=== PATIENT | female | born 1950 | race Caucasian/White ===

== ENCOUNTER 2018-04-28 13:06 | Inpatient (IN) | payer MEDICARE, OTHER ==
[~2018-04-28] VITALS: Ht 160 cm; Wt 76.2 kg
--- NOTE | ~2018-04-28 | H ---
[address] [address] HISTORY AND PHYSICAL Name: DORITA TUBBS Room: [address] IN M.R.#: [id number] Admission: 04/28/18 Attend Phys: Sapna Gibbs DO Discharge: Date of : 50 Report #: [id number] THIS REPORT FOR: //name// CC: Musa Gibbs DATE OF SERVICE: 04/28/2018 HISTORY OF PRESENT ILLNESS: This is a 68-year-old female admitted to inpatient rehabilitation to facilitate safe discharge home, status post fall from standing height down to stairs, sustaining a left bimalleolar ankle fracture as well as impact to bilateral knees, which she does have osteoarthritis onto the right foot, which was ruled out to have no fracture initially, but is to be followed by Orthopedic Surgery in 1 week. She did have an inability to weightbear on the left lower extremity following the fall and when x-ray did show a bimalleolar fracture of the left ankle, she did follow with Orthopedic Surgery who wanted to follow up with her in 1 week's time to see if she would be a surgical candidate or nonoperative conservative treatment. No significant changes since the preadmission screening. Previous level of function was independent to modified independent with activities of daily living, requiring 3 liters of oxygen due to pulmonary issues around the clock. Current level of function is mod assist of 1-2 depending on therapy, activity and time of day. Estimated length of stay is 7-10 days, with discharge disposition to the home setting where she does have supportive family in the area. She does not have an accessible house for wheelchair, but she does have an elevator. She is nonweightbearing on the left lower extremity until further evaluated by Orthopedic Surgery for followup. She does have a hard splint in place. PAST MEDICAL HISTORY: 1. 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 2. COPD. 3. Hypertension. 4. Status post fall. 5. Irregular heartbeat. 6. Anemia. 7. Recurrent UTIs. PAST SURGICAL HISTORY: Appendectomy, endarterectomy of the right carotid. Hysterectomy, parathyroid gland surgery due to an adenoma. ALLERGIES: PENICILLIN, SHELLFISH, STRAWBERRIES, VANCOMYCIN AND ANALOGS. SOCIAL HISTORY: No tobacco, alcohol or illicit drug use. MEDICATIONS: Reviewed and reconciled by myself [place] [address] HISTORY AND PHYSICAL Name: DORITA TUBBS Room: [address] IN [facility]#: [id number] Admission: 04/28/18 Attend Phys: Sapna Gibbs DO Discharge: Date of : 50 Report #: [id number] FAMILY HISTORY: Cardiac disease and diabetes. REVIEW OF SYSTEMS: A 14-point review of systems is done and is negative except as mentioned in HPI, specifically no fever, chest pain, shortness of breath, abdominal pain or distention, change in bowel or change in bladder. PHYSICAL EXAMINATION: GENERAL: Alert, oriented, no apparent distress. VITAL SIGNS: Reviewed and are stable. HEENT: Head atraumatic, normocephalic. Pupils equal, round, reactive. ABDOMEN: Soft, nontender, nondistended. NEUROLOGIC: Cranial nerves 2-12 are grossly intact with no focal neuro deficits, 5/5 strength in the bilateral upper and lower extremities. SKIN: Warm and dry. No rashes or lesions noted. In the left lower extremity, there is a hard splint in place. She can wiggle all of her toes. ASSESSMENT: 1. Left bimalleolar ankle fracture, status post fall from standing height with nonweightbearing and currently conservative treatment until followup with Orthopedic Surgery in 7 days. 2. Multiple medical comorbidities including need for anticoagulation, hypertension, O2 dependency with chronic obstructive pulmonary disease and eosinophilic granuloma, chronic anemia requiring transfusion and iron infusion. 3. Debility with alterations in activities of daily living. PLAN: 1. Admission to inpatient rehabilitation to facilitate safe discharge home. 2. PT, OT, case management, nursing and HIMS to make evaluations and recommendations. 3. Plan of care is pending, and we will team her weekly on Wednesdays. 4. Pain control. By: [id number] Gibbs DO /nt
--- NOTE | ~2018-04-28 | PLAN ---
[address] [address] REHAB UNIT PLAN OF CARE Name: DORITA TUBBS Room: [address] IN .R.#: [id number] Admission: 04/28/18 Attend Phys: Sapna Gibbs DO Discharge: Date of : 50 Report #: [id number] THIS REPORT FOR: //name// CC: Musa Gibbs This is a 68-year-old female admitted to inpatient rehabilitation to facilitate safe discharge home, status post fall from standing height down 2 stairs sustaining a left bimalleolar ankle fracture as well as contusions to the bilateral knees, which she has osteoarthritis and the right foot. She has been managed conservatively with a hard splint on left lower extremity with nonweightbearing status until followup with Orthopedic Surgery in 1 week's time. She does have multiple medical comorbidities including acute on chronic pulmonary issues requiring oxygen dependency at 3 liters around the clock, hypertension, debility with changes in balance, COPD, anemia and recurrent UTIs. Previous level of function was modified independent to independent with activities of daily living. Current level of function is moderate assistance to maximum assistance depending on therapy, activity and time of day. Estimated length of stay is 7-10 days with discharge disposition to the home setting. MEDICAL PROGNOSIS: Good. REHABILITATION PROGNOSIS: Good. Physical therapy will see the patient 60-90 minutes per day, 5 days per week, working on upper and lower body strength, balance, coordination, navigation. Occupational therapy will work with the patient 60-90 minutes per day, 5 days per week, working on upper and lower body strength, balance, coordination, navigation, bathing, dressing, and toileting. This is an overall plan of care, may change from time to time. We will team weekly and make changes to plan of care as needed. By: [id number] Gibbs DO /mara
[~2018-04-28 13:06] MED LIST: ALLOPURINOL 10100 M1 PO; AMITRIPTYLINE H25 M2 PO; ASMANEX0.135 GM PO; CLONAZEPAM 0.50.5 M1 PO; COLACE 100 MG100 MG PO; COLCRYS 0.6 MG0.6 MG PO; COZAAR 50 MG TA50 M1 PO; DEPAKOTE250 MG PO; DILTIAZEM HCL60 MG PO; FUROSEMIDE 20 M20 M1 PO; MELATONIN3 MG PO; NORTRIPTYLINE H25 M3 PO; PHENERGAN 25 MG25 M1 PO; POTASSIUM20 PO; PREDNISONE 10 M10 M1 PO; SYNTHROID100 MC1 PO; TORADOL 10 MG T10 MG PO; TRAMADOL 50 MG50 MG PO; VITAMIN D1000 UNI1 PO; XOPENEX HFA15 GM PO; XOPENEX1.25 MG/3 INH
[2018-04-28] MEDS ORDERED: GLIMEPIRIDE1 MG PO (13:55)
[2018-04-28] MEDS ORDERED: JANUVIA100 MG PO (13:56)
[2018-04-28] MEDS ORDERED: NITROGLYCERIN SPRAY SUBLING (14:00)
[2018-04-28] MEDS ORDERED: BACTRIM DS TAB1 EACH PO (14:03)
[2018-04-28] MEDS ORDERED: PEPCID20 MG PO (14:05)
[2018-04-28] MEDS ORDERED: OMEPRAZOLE 20 M20 M1 PO (14:09)
[2018-04-28 16:00] VITALS: BP 105/56
--- NOTE | 2018-04-28 17:54 | NUR ---
ASSUMMED CARE OF PT ON ADMISSION TO UNIT 1600, PT ALERT AND ORIENTED, PT TRANSFERS WITH SBA/MIN ASSIST GB WALKER, PT DENIES NEED FOR PAIN MEDICATION, SPLINT TO LEFT ANKLE, ELEVATED WHEN IN CHAIR, PT ON O2 AT 3L PER HOME ORDER, O2 SAT 95% ON 3L, PT IS NWB TO LEFT LEG, PT IS CONTINENT OF BOWEL AND BLADDER, DOES NOT WEAR PAD, ORIENTED TO ROOM, HOURLY ROUNDING COMPLETED, ASSESSMENT COMPLETE, WILL COTNINUE TO MONITOR.
[2018-04-28 20:28] VITALS: BP 104/57
[2018-04-29 04:19] LABS: HEMATOCRIT 41.1 % (37.0-47.0); HEMOGLOBIN 13.4 gm/dL (12.0-15.0); MCH 29.4 pg (26.0-34.0); MCHC 32.6 g/dL (28.0-37.0); MCV 90.2 fL (80.0-100.0); MPV 8.1 fl. (7.2-11.1); RBC 4.56 mil/uL (4.20-5.00); RDW-CV 15.5 % (10.5-14.5); WBC 7.4 thou/uL (4.0-11.0)
[2018-04-29 04:43] LABS: CALCIUM 9.5 mg/dL (8.5-10.1); CREATININE 0.8 mg/dL (0.6-1.3); POTASSIUM 4.8 mmol/L (3.5-5.1)
--- NOTE | 2018-04-29 05:27 | NUR ---
ASSUMED PT CARE AT 1930. PT ALERT AND ORIENTED X4, POLITE AND COOPERATIVE WITH CARES. DENIES PAIN HAVING HAD TYLENOL JUST PRIOR TO SHIFT CHANGE. PT TRANSFERS WITH SBA, GAIT BELT AND WALKER. PT IS NWB ON LEFT LEG. SPLINT TO LEFT ANKLE, DRESSING C/D/I. PT ON 3L 02 OVERNIGHT PER HOME REGIMEN. PT CONTINENT OF BOWEL AND BLADDER, UP TO BSC TO VOID. USES CALL LIGHT APPROPRIATELY. CALL LIGHT AND FREQUENTLY USED ITEMS WITHIN REACH. HOURLY ROUNDING IN PROGRESS, WILL CONTINUE TO MONITOR.
--- NOTE | 2018-04-29 12:20 | NUR ---
Nutrition: Consult for wt loss without trying since November. Pt stated she has lost ~20# since her in Nov. 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 She has resorted to frozen tv dinners and salads. She has support from dtr who suggested using alarm on phone to remind her to eat. Pt also has DM and feels light-headed when BG is in 70/60s. We discussed hypoglycemic TX. She also has CHF - we discussed importance of low Na diet, how to manage Na with frozen dinners (<600mg per meal). All questions answered. RD expects fair to good compliance. Current wt: 158#. Mild risk at this time.
--- NOTE | 2018-04-29 16:04 | NUR ---
SW met with pt to complete initial assessment, introduce self, and SW role on inpt rehab unit. Pt alert, oriented. Pt lives at home alone. Pt has 2 dtrs, Rosanne and Sapna, Sapna is pt DPOA and lives closer to pt. Rosanne lives in [place], [place]. Pt has oxygen at home; pt says it's provided through [employer]. Pt does not have history of HH and has been independent with mobility and ADLs prior to pt fall and hospitalization. Pt discussed that she has been a only 4 months now and says she has a difficult time being alone/grieving loss but pt goal is to be able to make progress in therapies and be able to return home safely. Pt said she has learned so much in therapies already. SW discussed team conference on Wednesdays, provided consent form, and will continue to follow to assist with safe dc planning.
--- NOTE | 2018-04-29 16:58 | NUR ---
ASSUMED CARE OF PATIENT AT APPROX 0720. ALERT AND ORIENTED X4. ASSESSMENT COMPLETED AND CHARTED. VSS ON 3 LITERS 02. NO COMPLAINTS OF PAIN THROUGHOUT SHIFT. PATIENT TO THE DINING ROOM FOR MEALS TODAY. UP TO THE BATHROOM USING WHEELCHAIR AND MAINTAINING NON WEIGHT BEARING STATUS ON LLE. WOTKING WITH THERAPIES TODAY AND PROGRESSING TOWARD GOALS. HOURLY ROUNDS MAINTAINTED. FALL PRECAUTIONS IN PLACE. CALL LIGHT WITHIN REACH. NURSING WILL CONTINUE TO MONITOR.
[2018-04-29 20:34] VITALS: BP 144/61
--- NOTE | 2018-04-30 05:24 | NUR ---
ASSUMED PT CARE AT 1930. PT ALERT AND ORIENTED X4, POLITE AND COOPERATIVE WITH CARES. PT SITTING UP WATCHING TELEVISION AT SHIFT CHANGE. UP WITH MIN ASSIST, GAIT BELT AND WHEELCHAIR TO BATHROOM TO VOID WHILE MAINTAINING NON WEIGHT BEARING STATUS ON LLE. PT REQUESTED TRAMADOL AND TYLENOL AT HS AND SLEPT WELL OVERNIGHT. USES CALL LIGHT APPROPRIATELY. CALL LIGHT AND FREQUENTLY USED ITEMS WITHIN REACH. HOURLY ROUNDING IN PROGRESS, WILL CONTINUE TO MONITOR.
[2018-04-30 07:00] VITALS: BP 129/71
--- NOTE | 2018-04-30 16:58 | NUR ---
PT HAS PARTICIPATED WITH THERAPIES AND CALLS FOR ASSIST NEEDS. PRN FOR PAIN GIVEN X2 WITH GOOD EFFECT. PT TRANSFERRS WITH WALKER, GAITBEL NWB TO LT LEG AND HOPS. PT IS CONTINENT OF B+B. CAST TO LT LOWER LEG DRY AND INTACT.PT REMAINS ALERT AND ORIENTATED. HOURLY ROUNDING CONTINUES.
--- NOTE | 2018-05-01 05:21 | NUR ---
ASSUMED PT CARE AT 1930. PT ALERT AND ORIENTED X4, POLITE AND COOPERATIVE WITH CARES. HX OF LEFT ANKLE FRACTURE. UP WITH SBA, GAIT BELT AND WALKER. PT HOPS ON RIGHT FOOT, NWB TO LEFT LEG. CAST TO LOWER LEFT LEG DRY AND INTACT. PT CONTINENT OF BOWEL AND BLADDER. UP TO BSC TWICE OVERNIGHT TO VOID. PRN PAIN MEDICATION TWICE THIS SHIFT. USES CALL LIGHT APPROPRIATELY. CALL LIGHT AND FREQUENTLY USED ITEMS WITHIN REACH. HOURLY ROUNDING IN PROGRESS, WILL CONTINUE TO MONITOR.
[2018-05-01 08:14] VITALS: BP 109/59
--- NOTE | 2018-05-01 17:47 | NUR ---
pt pain managed well with ordered pain meds. pt wants to keep a regular schedule with pain meds to control pain in lle and c/o r foot throbbing 'like it has a headache'. pt transfers with sba using walker and gait belt. pt able to make needs known, call light in reach
[2018-05-01 19:09] VITALS: BP 137/59
[2018-05-01 19:15] VITALS: BP 137/59
--- NOTE | 2018-05-01 20:30 | NUR ---
SLEEPING IN RECLINER. AWAKENED FOR HS REASSESSMENT AND MEDICATIONS PASS. TOOK MEDICATIONS WHOLE WITH WATER. SNACK PROVIDED.
--- NOTE | 2018-05-02 05:40 | NUR ---
UP X ONE DURING THE NIGHT TO THE BEDSIDE COMMODE TO VOID. HOURLY ROUNDING IN PROGRESS.
[2018-05-02 08:24] VITALS: BP 140/76
[2018-05-02 08:30] VITALS: BP 140/76
--- NOTE | 2018-05-02 16:56 | NUR ---
PATIENT REMAINED ALERT AND ORIENTED X'S4. VITAL SIGNS AND SPO2 STABLE. PAIN WELL CONTROLLED WITH TYLENOL AND TRAMODOL. VOIDED WITHOUT ISSUE, STANDS AND PIVOTS AT BEDSIDE COMMODE. TOLERATED DIET, NO NAUSEA AND VOMITING. ANKLE ELEVATED IN CHAIR CURRENTLY. COMPLETED HOURLY ROUNDING. CALL LIGHT WITHIN REACH. WILL CONTINUE TO MONITOR.
[2018-05-02 19:35] VITALS: BP 154/64
--- NOTE | 2018-05-02 19:35 | NUR ---
SITTING UP IN BED AND WATCHING TV. IN GOOD SPIRITS/SMILING. STATES LEFT ANKLE PAIN AT A "6". WILL GIVE PAIN MEDS. CALL LIGHT WITHIN REACH.
--- NOTE | 2018-05-03 05:40 | NUR ---
PAIN MEDICATION GIVEN AGAIN AT 0407. SOME RELIEF AFTER SITTING UP ON SIDE OF BED FOR AWHILE. RESTED ON/OFF. HOURLY ROUNDING IN PROGRESS.
[2018-05-03 08:00] VITALS: BP 115/47
--- NOTE | 2018-05-03 13:40 | NUR ---
SW received message/order to arrange transportation to pt ortho appt with [facility]...Nurse provided info of appt Thursday05/07/[address] [place] [address] [place] [address] at 1330. SW called [facility] [employer] and provided a request for transportation, SW will await confirmation that [facility] will be able to provide ride, and if not, SW will call [facility] nearer to appt date to arrange ride. SW to continue to follow to assist with safe dc planning.
--- NOTE | 2018-05-03 16:42 | NUR ---
PT HAS WORKED WITH THERAPIES AT NWB STATUS TO LT ANKLE. PT TRANSFERRS WITH WALKER,GAITBELT AND HOPPING . PT HAS C/O PAIN IN RT. ANKLE WITH CT DONE TODAY AND NO RESULTS BACK YET. PT CONTINENT OF B+B AND CALLS FOR ASSIST TO COMMODE. PT REMAINS ALERT AND ORIENTATED. CAST INTACT TO LLE. PRN FOR PAIN GIVEN WITH GOOD EFFECT.
[2018-05-03 20:00] VITALS: BP 120/47
--- NOTE | 2018-05-04 05:32 | NUR ---
ASSUMED CARE AT 1920. ALERT AND ORIENTED. PLEASANT. LEFT ANKLE FX. NWB LLE. LLE CAST IN PLACE. O2 3L NC. TRAMADOL AND APAP GIVEN FOR LEFT ANKLE PAIN. TOOK PILLS WHOLE WITHOUT ISSUES. MOD ASSIST WITH GAIT BELT. STAND AND PIVOT. UP TO BSC. DOES OWN CARES. NEEDS ASSIST WITH LEG INTO BED. SAT UP ONTO SIDE OF BED X 1 SETTING OFF BED ALARM. WAS UNCOMFORTABLE IN BED AND SO PAIN MEDS GIVEN. SLEPT OFF AND ON. CALL LIGHT IN REACH AND BED ALARM ON.
[2018-05-04 08:00] VITALS: BP 132/57
--- NOTE | 2018-05-04 16:26 | NUR ---
PT HAS PARTICIPATED WITH THERAPIES AND WAS GIVEN PL TYLENOL THIS AFTERNOON WITH GOOD EFFECT. ROSELYN WRAPPED DRY AND INTACT TO LT LE. PT TRANSFERRS WITH MUCH QUEING FOR PROPER TRANSFERRE WITH WALKER,GAITBELT NWB TO LT LEG AND MIN ASSIST PT IS ALERT AND ORIENTATED BUT SLEEPY AT TIMES. PT TOLERATES MEALS AND EATS IN DINNINGROOM. PT IS CONTINENT OF B+B AND CALLS FOR ASSIST TO BSC. PT PROGRESSES TOWARDS GOALS AND HOURLY ROUNDING CONTINUES.
[2018-05-04 20:00] VITALS: BP 132/64
--- NOTE | 2018-05-05 05:15 | NUR ---
ASSUMED CARES AT 1920. ALERT AND ORIENTED. PLEASANT. LEFT ANKLE FX. NWB LLE. ON O2 3L NC. PAIN MEDS GIVEN NEEDED. MOD ASSIST WITH GAIT BELT. STAND AND PIVOT. UP TO BSC. DOES OWN CARES. SLEPT WELL. CALL LIGHT IN REACH AND BED ALARM ON.
[2018-05-05 08:00] VITALS: BP 139/63
--- NOTE | 2018-05-05 16:17 | NUR ---
Pt in the middle of OT session at time of rounds after team, Dr Gibbs later reviewed team conference summary with pt and discussed plan to reteam. Pt to have ortho appt on Thursday; SW to arrange [facility], SW received call back from [facility] who thought that they would be able to provide ride but then had to cancel. If SNF needed, pt/family preference is for [facility], SW to call as needed. SW to continue to follow to assist with safe dc planning.
--- NOTE | 2018-05-05 18:47 | NUR ---
PT IS ALERT AND ORIENTED. PT WAS TEARY EARLIER IN AM. OXYGEN @ 3 L/NC. ADMINISTERED TYLENOL FOR PAIN MEDICATION . PARTICIPATED IN THERAPIES DURING DAY. UP WITH ASSIST X 1 WITH GAIT BELT AND WALKER. USES BSC. NON-WEIGHTBEARING TO LLE. CAST IN PLACE. PT TO MRI @ 1630. ACCUCHECK @ 64 IN EVENING. RECHECK AND NOTED TO BE @ 110. HOURLY ROUNDS MAINTAINED. CALL LIGHT WITHIN REACH.
[2018-05-05 19:45] VITALS: BP 106/38
[2018-05-05 20:00] VITALS: BP 130/71
[2018-05-06 04:33] LABS: ABSOLUTE EOSINOPHILS 0.3 thou/uL (0.0-0.7); ABSOLUTE LYMPHOCYTES 2.5 thou/uL (0.8-5.3); ABSOLUTE MONOCYTES 0.7 thou/uL (0.0-1.2); ABSOLUTE NEUTROPHILS 2.3 thou/uL (1.6-8.1); BASOPHILS 0.4 %; EOSINOPHILS 5.5 %; HEMATOCRIT 39.2 % (37.0-47.0); HEMOGLOBIN 12.9 gm/dL (12.0-15.0); LYMPHOCYTES 42.9 %; MCH 30.2 pg (26.0-34.0); MCHC 32.9 g/dL (28.0-37.0); MCV 91.7 fL (80.0-100.0); MONOCYTES 12.5 %; MPV 7.5 fl. (7.2-11.1); NUCLEATED RBCS 0 /100WBC; PLATELET COUNT* 119 thou/uL (150-400); POLYS 38.7 %; RBC 4.28 mil/uL (4.20-5.00); RDW-CV 15.2 % (10.5-14.5); WBC 5.9 thou/uL (4.0-11.0)
[2018-05-06 04:49] LABS: ALBUMIN 2.6 g/dL (3.4-5.0); CALCIUM 9.6 mg/dL (8.5-10.1); CREATININE 0.7 mg/dL (0.6-1.3); POTASSIUM 4.4 mmol/L (3.5-5.1); TOTAL BILIRUBIN 0.3 mg/dL (<0.1-1.0); TOTAL PROTEIN 6.6 g/dL (6.4-8.2)
[2018-05-06 05:16] LABS: % SATURATION 28 % (20-39); IRON 83 ug/dL (50-175)
--- NOTE | 2018-05-06 05:47 | NUR ---
ASSUMED CARES AT 1920. PT SLEEPING, DROWSY BUT EASY TO AWAKEN. NWB LLE. O2 3L NC. TYLENOL GIVEN FOR LEFT ANKLE PAIN. MOD ASSIST WITH GAIT BELT. STAND AND PIVOT. UP TO BSC. NEEDS CUEING WITH TRANSFERS. NO ISSUES OVERNIGHT. SEEN SLEEPING DURING ROUNDS. CALL LIGHT IN REACH AND BED ALARM ON.
[2018-05-06 08:00] VITALS: BP 121/50
--- NOTE | 2018-05-06 15:41 | NUR ---
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 SW to continue to follow to assist with safe dc planning.
--- NOTE | 2018-05-06 16:14 | NUR ---
ASSUMMED CARE OF PT AT 0730, PT ALERT, TEARY EYED AT TIMES THRUOUT SHIFT, TRANSFERS WITH MIN/MOD ASSIST GB WALKER AND CUEING, NWB LEFT LEG, PT COMPLAIN OF PAIN IN LEFT LEG, MEDICATED PER ORDER, CONSULT FOR ORTHO TO SEE FOR RESULT OF RIGHT FX, POST OP BOOT ORDERED, PT MAY BE WBAT TO RIGHT LEG, PT VOIDS PER COMMODE, TAKING FOOD AND FLUIDS BUT DOES NEED ENCOURAGEMENT TO EAT, PARTICIPATED IN ALL THERAPIES, HOURLY ROUNDING COMPLETED, ASSESSMENT COMPLETE, WILL CONTINUE TO MONITOR.
--- NOTE | 2018-05-06 17:29 | NUR ---
I have reviewed the documentation by MARÍA FRIED TODAY and I concur with it. TAMI MALIN
[2018-05-06 20:34] VITALS: BP 136/58
--- NOTE | 2018-05-07 06:12 | NUR ---
ASSUMED PT CARE AT 1930. PT ALERT AND ORIENTED X4, POLITE AND COOPERATIVE WITH CARES. PT SITTING UP IN RECLINER WITH FEET ELEVATED. PT UP WITH MID/MOD ASSIST, GAIT BELT, WALKER AND CUEING. USED BSC OVERNIGHT TO VOID. NWB LEFT LEG, WBAT TO RIGHT LEG.
[2018-05-07 08:33] VITALS: BP 143/57
--- NOTE | 2018-05-07 13:20 | NUR ---
I have reviewed the documentation by MARÍA FRIED from TODAY to 05/07/18 and I concur with it. TAMI MALIN
--- NOTE | 2018-05-07 18:39 | NUR ---
ASSUMMED CARE OF PT AT 0730, PT ALERT AND ORIENTED, TRANSFERS WITH MIN/MOD ASSIST, GB WALKER AND O2, PT COMPLAINS OF PAIN IN BILATERAL LE, MEDICATED PER ORDER, PT DENIES NAUSEA, STATES APETITE IS POOR FOR LAST SEVERAL MONTHS, DISCUSSED THAT PT HAS NOT HAD BM FOR SEVERAL DAYS, PT REFUSED MEDS THIS AM STATING LAST TIME SHE TOOK MEDS HAD LOOSE STOOLS, PT STATES PASSING FLATUS, EDUCATED PT ON IMPORTANCE OF HAVING BOWEL MOVEMENT, PT AGREEABLE TO TAKE MILK OF MAGNESIA AT BEDTIME TONIGHT, DISCUSSED SUPP IF NO RESULTS TOMORROW, PT HAD APPT AT ORTHOPEDIC OFFICE TODAY, PT NOW HAS CAM BOOT ON LEFT AND ORTHO SHOE ON RIGHT, PT STATED WHEN CAST WAS CUT OFF, HER LEG WAS CUT, STERI STRIPS/GAUZE APPLIED AT ORTHO OFFICE,CUT NOTED ON MID ROJAS AREA, O2 ON AT 3 L ALL SHIFT, PARTICIPATED IN ALL THERAPIES, ASSESSMENT COMPLETE, HOURLY ROUNDING COMPLETE, WILL MICHELLUE TO MONITOR.
[2018-05-07 20:27] VITALS: BP 141/61
--- NOTE | 2018-05-08 05:43 | NUR ---
ASSUMED PT CARE AT 1930. PT ALERT AND ORIENTED X4, POLITE AND COOPERATIVE WITH CARES. UP WITH MINIMUM TO MODERATE ASSISTANCE, GAIT BELT AND WALKER. PT NEEDS STEADYING ASSIST WHEN STANDING. PRN PAIN MEDICATION TWICE THIS SHIFT FOR LEFT FOOT PAIN. PT WEARS CAM BOOT TO LEFT LE AND ORTHO SHOE ON RIGHT FOOT. STERI-STIPS APPLIED TO LEFT ROJAS AT ORTHO OFFICE INTACT. 02 AT 3L AT ALL TIMES. SMALL STOOL AT SHIFT CHANGE. PT TOOK COLACE AND MOM WITH EVENING MEDS. CALL LIGHT AND FREQUENTLY USED ITEMS WITHIN REACH. USES CALL LIGHT APPROPRIATELY. BED ALARM ON FOR SAFETY. HOURLY ROUNDING IN PROGRESS, WILL CONTINUE TO MONITOR.
[2018-05-08 07:00] VITALS: BP 117/56
[2018-05-08 07:57] VITALS: BP 117/56
--- NOTE | 2018-05-08 18:15 | NUR ---
AM ASSESSMENT AND VITAL SIGNS COMPLETED DOCUMENTED. PT WORE A CAM BOOT ON THE LEFT LOWER LEG AND AN ORTHOPEDIC SHOE ON HER RIGHT FOOT. PT TRANSFERS WITH A WALKER AND TRIES TO AVOID PUTTING WEIGHT ON HER LEFT FOOT. PRN TRAMADOL AND ACETAMINOPHEN GIVEN FOR PAIN WITH PARTIAL RELIEF. FALL PRECAUTIONS AND HOURLY ROUNDING CONTINUE.
[2018-05-08 20:20] VITALS: BP 118/64
--- NOTE | 2018-05-09 05:31 | NUR ---
ASSUMED PT CARE AT 1930. PT ALERT AND ORIENTED X4, POLITE AND COOPERATIVE WITH CARES. HX OF LEFT ANKLE FRACTURE. UP WITH MIN TO MODERATE ASSIST, GAIT BELT AND WALKER. PT NEEDS STEADING ASSIST WHEN STANDING. PRN MEDICATION ONCE THIS SHIFT FOR LEFT FOOT PAIN. PT WEARS CAM BOOT TO LEFT LE AND ORTHO SHOE ON RIGHT FOOT. STERI-STRIPS TO LEFT ROJAS INTACT. 02 AT 3L AT ALL TIMES. NO STOOL THIS SHIFT. BED ALARM ON FOR SAFETY. USES CALL LIGHT APPROPRIATELY. CALL LIGHT AND FREQUENTLY USED ITEMS WITHIN REACH. HOURLY ROUNDING IN PROGRESS, WILL CONTINUE TO MONITOR.
[2018-05-09 08:00] VITALS: BP 117/49
[2018-05-09 20:00] VITALS: BP 133/61
--- NOTE | 2018-05-10 05:10 | NUR ---
ASSUMED CARES AT 1920. ALERT AND ORIENTED. O2 3L NC. C/O LEFT LEG PAIN. PAIN MEDS GIVEN NEEDED. DID GET UP WITH GB AND WALKER UP TO BATHROOM OR WILL USE BSC. WANTS TO ONLY WHERE ORTHO SHOES. NWB LLE. HAS SOME STOMACH DISCOMFORT AND NAUSEA. PHENERGAN GIVEN. SLEPT LITTLE. CALL LIGHT IN REACH AND BED ALARM ON.
[2018-05-10 08:54] VITALS: BP 136/62
--- NOTE | 2018-05-10 11:30 | NUR ---
Plan to reteam on Thursday. Per pt/famil preference if SNF needed at dc, CARLOS ALBERTO called [facility] and left a message with Snow in Admissions and also faxed an initial referral. CARLOS ALBERTO informed pt susannarSapna of above info. SW to continue to follow to assist with safe dc planning.
--- NOTE | 2018-05-10 14:24 | NUR ---
I have reviewed the documentation by MARÍA FRIED from TODAY and I concur with it. TAMI MALIN
--- NOTE | 2018-05-10 17:23 | NUR ---
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
[2018-05-10 20:00] VITALS: BP 145/58
--- NOTE | 2018-05-11 05:32 | NUR ---
ASSUMED PT CARE AT 1930. PT ALERT AND ORIENTED, POLITE AND COOPERATIVE WITH CARES. WEARS 3L 02 CONTINUOUSLY. PT UP TO BSC SEVERAL TIMES OVERNIGHT TO VOID. TRANSFERS WITH ASSIST OF ONE, GAIT BELT AND WALKER. NWB ON LEFT LEG. PT ONLY WANTS TO WEAR ORTHO SHOES. ALTERNATIVE BRACE TO BE EXPLORED TODAY. USES CALL LIGHT APPROPRIATELY. BED ALARM ON FOR SAFETY. HOURLY ROUNDING IN PROGRESS, WILL CONTINUE TO MONITOR.
[2018-05-11 07:47] VITALS: BP 102/56
--- NOTE | 2018-05-11 10:55 | NUR ---
CARLOS ALBERTO followed up with Snow collins, at [facility] who requested therapy evaluations and pt hgt and wgt; SW faxed needed information. SW to continue to follow to assist with safe dc planning. Reteam tomorrow and pt dtr aware; no concerns or questions presented at this time.
--- NOTE | 2018-05-11 14:37 | NUR ---
I have reviewed the documentation by MARÍA FRIED from TODAY and I concur with it. TAMI MALIN
--- NOTE | 2018-05-11 18:00 | NUR ---
ASSUMMED CARE OF PT AT 0730, PT TRANSFERS WITH GB WALKER ASSIST OF 1, PT CAN BE WBAT ON BILATERAL LEGS WITH CAM BOOT ON LEFT AND ORTHOPEDIC SHOE ON RIGHT, GEAR NICKER SWITCHED OUT CAM BOOT TO SMALLER SIZE BUT PT STILL FEELS LIKE IT DOESNT FIT RIGHT, PT COMPLAINS OF PAIN IN LEFT LEG, LIDOCAINE PATCHES APPLIED TO EACH SIDE OF ANKLE,MEDICATED PER ORDER WITH PAIN MEDS, TUBIGRIP APPLIED TO LEFT LEG AND ELEVATED TO HELP REDUCE SWELLING, PT VOIDS PER TOILET AND HAD MODERATE SOFT STOOL THIS PM, PT STATES SHE IS HAVING DIARRHEA BUT NO DIARRHEA STOOLS, EXPLAINED TO PT THAT HER STOOLS ARE JUST SOFT SO DOES NOT NEED ANTIDIARRHEA MEDICATION, STOOL SOFTENERS DC'D, PARTICPATED IN ALL THERAPIES, HOURLY ROUNDING COMPLETED, ASSESSMENT COMPLETE, WILL CONTINUE TO MONITOR.
--- NOTE | 2018-05-11 20:05 | NUR ---
AWAKENED FOR HS REASSESSMENT AND MEDICATIONS PASS. PAIN MEDICATION GIVEN FOR COMPLAINT OF PAIN IN KNEES AND FEET. TOOK MEDICATIONS WHOLE A FEW AT A TIME WITH APPLESAUCE FOLLOWED WITH WATER.
[2018-05-11 20:19] VITALS: BP 140/68
--- NOTE | 2018-05-12 05:32 | NUR ---
RESTED SOUNDLY WITH 02 NC AT 3 LITERS UNTIL ABOUT 0400. PAIN MEDICATION GIVEN PER REQUEST. PATIENT GOT UP TO BEDSIDE COMMODE TO VOID AND HAD A SMALL BM. HOURLY ROUNDING IN PROGRESS.
--- NOTE | 2018-05-12 07:45 | NUR ---
ASSUMED CARE OF PT ASSESSED AND DOCUMENTED. PT IS A&O AND HAD NO C/O PAIN. VSS WNL. PT IS AFEBRILE. SHE IS ON 3L OF 02 WITH CLEAR/DIMINISHED LUNGS. PT REFUSED BOOT FOR L LEG AND STATES IT IS TO HEAVY TO WEAR AND SHE HAS TROUBLE APPLYING STRAPS AND VELCRO. PT HAS DRY SKIN ON BLLE'S. SHE REFUSED LOTION AND STATES IT MAKES HER LEGS SWELL. PT CAN BE FORGETFUL. SHE TOLD THIS ADMINISTRATIVE JUDGE SHE DIDNT HAVE TIME TO ORDER BREAKFAST AND DID NOT LIKE WHAT SHE HAD. WHEN I CALLED TO GET NEW BREAKFAST DIETERY STATED SHE ORDERED THE BREAKFAST SHE WAS BROUGHT. PT DID EAT THE YOUGERT AND POTATOES I BROUGHT HER. BED IS IN LOW POSITION ALARM IS ON. STERI STRIPS ARE IN PLACE . .
[2018-05-12 08:29] VITALS: BP 122/67
--- NOTE | 2018-05-12 14:59 | NUR ---
Dr Gibbs and CARLOS ALBERTO met with pt briefly, pt completing ST session at the time. Dr Gibbs met with pt to review team conference summary and plan for pt to dc to SNF [facility] on Thursday. Dr Gibbs/pt dtr relayed pt in agreement with plan. CARLOS ALBERTO called admissions of [facility] and spoke with Snow to inform of pt dc on Thursday and Snow requesting therapy notes tomorrow and continues to plan for admission to SNF on Thursday. SW to continue to follow to assist with finalizing safe dc plan and SNF placement.
--- NOTE | 2018-05-12 17:09 | NUR ---
PT HAS RESTED IN HER ROOM IN BEDSIDE CHAIR BETWEEN THERAPIES. HELPED PT TO THE BATHROOM. SHE USED HER WALKER. I HELD ON TO THE GAIT BELT BUT PT WAS ABLE TO ACCOMPLISH ON HER OWN. PT STATES SHE HAS TO DO IT SO SHE CAN GO HOME. PT C/O PAIN IN HER L LEG X1 DESCRIBED THROBBING AND RATES A 4 ON PAIN SCALE. TRAMADOL AND TYLENOL GIVEN. EDUCATION GIVEN ON DEMAND. HOURLY ROUNDING CONTINUES.
--- NOTE | 2018-05-12 17:32 | NUR ---
I have reviewed the documentation by MARÍA FRIED from TODAY and I concur with it. TAMI MALIN
--- NOTE | 2018-05-12 18:06 | NUR ---
GAVE PT ONE TYLENOL AND ONE TRAMODOL FOR FT PAIN RATED A 7. PT DID GO TO THE DINING ROOM FOR DINNER.
[2018-05-12 20:12] VITALS: BP 134/63
--- NOTE | 2018-05-13 05:31 | NUR ---
Assumed patient care at 1900. Ptient alert and oriented times four. Able to transfer to [facility] with walker and gait belt. Minor complaints of pain noted, controlled with oral medications. speech and language specialist and houirly rounding completed as documented.
[2018-05-13 07:59] VITALS: BP 149/71
--- NOTE | 2018-05-13 16:22 | NUR ---
I have reviewed the documentation by MARÍA FRIED from TODAY and I concur with it. TAMI MALIN
--- NOTE | 2018-05-13 17:24 | NUR ---
Pt to dc on Thursday instead of Thursday to [facility] SNF. Pt family to provide pt ride home. SW to send updates to [facility] for therapists notes. CARLOS ALBERTO discussed with pt susannarSapna. SW to continue to follow to assist with finalizing safe dc planning.
--- NOTE | 2018-05-13 18:45 | NUR ---
AM ASSESSMENT AND VITAL SIGNS COMPLETED DOCUMENTED. PT STARTED ON PREDNISONE TAPER TODAY FOR C/O SHORTNESS OF AIR. PT WORKED WITH THERAPIES BUT C/O NOT FEELING WELL. FALL PRECAUTIONS AND HOURLY ROUNDING IN PLACE. PT IS RESTING IN BED AT THIS TIME.
[2018-05-13 19:50] VITALS: BP 146/70
[2018-05-14 02:00] VITALS: BP 146/70
[2018-05-14] MEDS ORDERED: XANAX 0.25 MG0.25 MG PO (02:14)
[2018-05-14] MEDS ORDERED: AMBIEN 5 MG TABL5 M1 PO (02:16)
[2018-05-14] MEDS ORDERED: KEFLEX250 MG PO (02:18)
[2018-05-14] MEDS ORDERED: IPRAT-ALBUT 0.5-3 ML INH (02:25)
[2018-05-14] MEDS ORDERED: ASPIRIN EC81 M1 PO (02:27)
[2018-05-14] MEDS ORDERED: LOPERAMIDE 2 MG2 M1 PO (02:29)
[2018-05-14] MEDS ORDERED: LIDODERM1 EACH TOP (02:34)
[2018-05-14] MEDS ORDERED: ENOXAPARIN30 MG/0.1 SUBQ (02:35)
[2018-05-14] MEDS ORDERED: PROVIGIL 200 M200 M1 PO (02:36)
[2018-05-14] MEDS ORDERED: SERTRALINE HCL50 MG PO (02:38)
[2018-05-14] MEDS ORDERED: PREDNISONE 10 M10 MG PO (02:39)
[2018-05-14] MEDS ORDERED: B12INJ IM (02:43)
--- NOTE | 2018-05-14 05:36 | NUR ---
ASSUMED CARES AT 1920. ALERT AND ORIENTED, PLEASANT. C/O NOT FEELING WELL TODAY. SITTING UP, LUNGS WHEEZY. NEB TX GIVEN PER ORDER. HAS NON PRODUCTIVE COUGH. PAIN MEDS GIVEN FOR LEFT FOOT PAIN. LACERATION ON LEFT ROJAS WAS LEIGH WITH NO STERISTRIPS. DID SEE MINIMAL SEROUS DRAINAGE. AREA WAS CLEANSED AND MEPILEX APPLIED. MIN ASSIST WITH GAIT BELT AND WALKER. UP TO BSC. SLEPT OFF AND ON. CALL LIGHT IN REACH.
[2018-05-14 07:00] VITALS: BP 138/66
[2018-05-14 07:54] VITALS: BP 138/66
--- NOTE | 2018-05-14 15:22 | NUR ---
Pt to dc to SNF [facility] on Monday 05/15; pt susannar Sapna to provide pt ride to SNF; dc possibly between 1 and 3 pm. SW copied chart and faxed final orders and med list to admissions at [facility]. Pt nurse to call report as pt leaves to give SNF notice for when pt is on her way there. [facility] ph number [phone]
--- NOTE | 2018-05-14 16:04 | NUR ---
I have reviewed the documentation by MARÍA FRIED from TODAY and I concur with it. TAMI MALIN
--- NOTE | 2018-05-14 18:47 | NUR ---
PT HAS BEEN GRADUALLY FEELING BETTER TODAY, ORAL ABX AND PREDNISONE TAPER CONTINUE WITHOUT ADVERSE REACTIONS. PT HAS BEEN ABLE TO AMBULATE SHORT DISTANCES WITHOUT INCREASED PAIN BUT CONTINUES TO NEED FREQUENT CUES R/T SAFELY TRANSFERRING AND USING THE WALKER. FALL PRECAUTIONS AND HOURLY ROUNDING CONTINUE.
[2018-05-14 20:00] VITALS: BP 145/64
[2018-05-15] MEDS ORDERED: DOXYCYCLINE 10100 M1 PO (01:50)
[2018-05-15] MEDS ORDERED: NYSTATIN100000 UNI SW&SWALLOW (01:51)
[2018-05-15] MEDS ORDERED: DIFLUCAN200 MG PO (01:52)
--- NOTE | 2018-05-15 05:20 | NUR ---
ASSUMED CARES AT 1920. ALERT AND ORIENTED. PLEASANT. WBAT BLE. O2 3L NC. DOES HAVE COUGH, LUNGS WHEEZY. C/O PAIN TO LEFT FOOT. PAIN MEDS GIVEN NEEDED. TAKES PILLS WHOLE. MIN ASSIST WITH GAIT BELT AND WALKER. UP TO BSC. DOES OWN CARES. SLEPT OFF AND ON. CALL LIGHT IN REACH. BED ALARM ON.
[2018-05-15 07:30] VITALS: BP 153/95
[2018-05-15 10:51] VITALS: BP 146/70
--- NOTE | 2018-05-15 15:24 | NUR ---
PATIENT DISCHARGED FROM UNIT AT 1505. ALERT AND ORIENTED X 4. VITAL SIGNS STABLE ON 3L O2 NASAL CANULA. AFEBRILE. PAIN BEING MANAGED WITH PO MEDICATION. DENIES NAUSEA. DISCHARGE PACKET GIVEN TO PATIENT'S DAUGHTER, RAAD HERNANDEZ, TO TAKE TO P[facility]ITENTIARY FACILITY. LEFT WITH ALL BELONGINGS. PATIENT LEFT WITH DAUGHER VIA CAR.
[2018-05-15 15:26] VITALS: BP 146/70
== END 2018-05-15 15:05 | DRG 563 ==
LOC: M.REH 13:06
PROVIDERS: ADMIT Physical Medicine & Rehabilitation
DX: S82.842A Displaced bimalleolar fracture of left lower leg, initial encounter for closed fracture (principal); N39.0 Urinary tract infection, site not specified; C96.6 Unifocal Langerhans-cell histiocytosis; J96.11 Chronic respiratory failure with hypoxia; W10.8XXA Fall (on) (from) other stairs and steps, initial encounter; Y93.01 Activity, walking, marching and hiking; M19.071 Primary osteoarthritis, right ankle and foot; I11.0 Hypertensive heart disease with heart failure; I50.9 Heart failure, unspecified; J44.9 Chronic obstructive pulmonary disease, unspecified; D64.9 Anemia, unspecified; R53.81 Other malaise; E11.9 Type 2 diabetes mellitus without complications; I25.10 Atherosclerotic heart disease of native coronary artery without angina pectoris; Y92.89 Other specified places as the place of occurrence of the external cause; Y99.8 Other external cause status; Z99.81 Dependence on supplemental oxygen; Z90.49 Acquired absence of other specified parts of digestive tract; Z90.710 Acquired absence of both cervix and uterus; Z88.0 Allergy status to penicillin; Z91.013 Allergy to seafood; Z91.018 Allergy to other foods; Z88.1 Allergy status to other antibiotic agents; Z88.6 Allergy status to analgesic agent; Z88.8 Allergy status to other drugs, medicaments and biological substances; Z87.891 Personal history of nicotine dependence; Z82.49 Family history of ischemic heart disease and other diseases of the circulatory system; Z83.3 Family history of diabetes mellitus; Z79.899 Other long term (current) drug therapy; Z91.040 Latex allergy status

== ENCOUNTER 2018-10-16 11:04 | Inpatient (IN) | payer MEDICARE, OTHER ==
[~2018-10-16] VITALS: Ht 160 cm; Wt 62.6 kg
--- NOTE | ~2018-10-16 | PROC ---
[address] [address] PROCEDURE REPORT Name: DORITA TUBBS Room: [address] ADM IN M.R.#: [id number] Admission: 10/16/18 Attend Phys: Casey Mills MD Discharge: Date of : 50 Report #: [id number] THIS REPORT FOR: //name// For GI report, please see the Provation report in Perceptive 7 content. By: [id number] Records Staff JESSE /BLUE
--- NOTE | ~2018-10-16 | CON ---
[address] [address] CONSULTATION Name: DORITA TUBBS Room: [address] IN M.R.#: [id number] Admission: 10/16/18 Attend Phys: Sloane Mills MD Discharge: 10/20/18 Date of : 50 Report #: [id number] THIS REPORT FOR: //name// CC: SLOANE Arboleda DATE OF SERVICE: 10/17/2018 REFERRING PHYSICIAN: Sloane Mills MD REASON FOR CONSULTATION: Abdominal pain with associated anemia. IMPRESSION: 1. Upper abdominal pain associated with black stools suggestive of melena. 2. 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 Julio Cesar Linn at [facility]. 3. History of coronary artery disease and CHF in the past. 4. History of chronic obstructive pulmonary disease, which requires 3 L of oxygen on a daily basis. RECOMMENDATIONS: 1. Because of history of melena and upper abdominal pain with associated anemia, we will proceed with upper endoscopy tomorrow as well as abdominal ultrasound to evaluate her biliary tract disease. 2. We will check labs to evaluate for source of anemia and assures do not have iron deficiency anemia. 3. We will request records from Dr. Julio Cesar Linn's office. 4. I will eventually discuss the patient's case with her daughter, a cio, Dr. Sapna Gibbs, regarding the same. I have discussed the plans with the patient as well and she is agreeable to the same. HISTORY OF PRESENT ILLNESS: The patient is a very pleasant 68-year-old white female who was admitted to hospital with rather severe upper abdominal pain associated with nausea and vomiting. She had the pain off and on for about a month or so. She also noted some black stools. She does have chronic reflux for which she takes medication for the same but she also takes Excedrin on a regular basis. She was seen through the Emergency Room with findings to suggest there may be some thickening of her stomach, possibly a mass within the stomach as well as probable cholelithiasis. She has been admitted to the hospital for further evaluation and treatment. ALLERGIES: CERTAIN ANESTHETICS OF THE AMIDE TYPE. SHE HAS PROBLEMS WITH SHELLFISH CAUSING ANAPHYLAXIS, STRAWBERRIES CAUSE HIVES, CODE[place] [address] CONSULTATION Name: DORITA TUBBS Room: [address] IN [facility]#: [id number] Admission: 10/16/18 Attend Phys: Sloane Mills MD Discharge: 10/20/18 Date of : 50 Report #: [id number] RASH, LATEX, CAUSING A RASH, MORPHINE CAUSING A RASH, PENICILLIN CAUSING A RASH. MEDICATIONS: Her medications at home include ipratropium bromide, Mucinex, pravastatin, aspirin, Excedrin, diltiazem, venlafaxine, potassium, prednisone, Advair, Januvia, diltiazem, furosemide, levothyroxine, losartan, and omeprazole 20 mg once daily. PAST MEDICAL HISTORY: Unknown hypertension, COPD, which is steroid and oxygen dependent, hypothyroidism, diabetes, anxiety, depression, chronic headaches for which she takes Excedrin. PAST SURGICAL HISTORY: She has history of previous appendectomy, hysterectomy. She has had a carotid endarterectomy, has history of parathyroid adenoma. She had thoracotomy and lung biopsy in the past. SOCIAL HISTORY: The patient smokes greater than a pack per day. Drinks no alcohol. FAMILY HISTORY: Negative. PHYSICAL EXAMINATION: GENERAL: A pleasant 68-year-old white female who is awake and alert. CARDIOPULMONARY: Revealed a regular rate and rhythm. LUNGS: Clear. ABDOMEN: Soft and mildly tender right upper quadrant. No rebound or guarding noted. LABORATORY DATA: From admission revealed a white count of 12.9, hemoglobin 13.8, platelet count 163,000. Her MCV was 84.5 and RDW 15.6. Sodium 138, potassium 3.7, chloride 99, bicarbonate is 25. Her BUN 10, creatinine 0.8, total bilirubin 0.6, alkaline phosphatase 148. Her AST was 7, ALT 12, albumin 3.6. Calcium is 10.3, but the patient was dry. Alcohol level was negative. Troponins are negative. With hydration, her hemoglobin has come down to 8.6 as of 10/17 and a BUN and creatinine are 7 and 0.5 respectively. Her calcium is now down to 8.3. CT scan of the abdomen and pelvis revealed normal liver without any parenchymal abnormalities and no lesions. The blood flow appears to be normal to the portal vein. The gallbladder did reveal one solitary 1 cm calcified gallstone with no other abnormalities. Pancreas is normal, spleen is normal. Adrenal glands are normal. There is a lesion within the left kidney measured 2.6 x 2.1 x 2.1 with well circumscribed margins of uncertain significance. Stomach revealed some circumferential or annular mural thickening of the distal body measuring up to 1.5 cm diameter with a constricted appearance. There is also some inflammatory change in the perigastric fat. There is no suggestion of mechanical [address] [place] [address] CONSULTATION Name: DORITA TUBBS Alexandra Room: [address]#: [id number] Admission: 10/16/18 Attend Phys: Sloane Mills MD Discharge: 10/20/18 Date of : 50 Report #: [id number] obstruction. The colon revealed diverticular disease only. DISCUSSION: At the present time, the patient has had some problems with abdominal pain as well as melena and anemia. We will proceed with upper endoscopy and abdominal ultrasound tomorrow and make further recommendations thereafter. I have discussed the plans with the patient as well and she is agreeable to the same. By: 1236 1944Jose Allen DO /mara
[~2018-10-16 11:04] MED LIST changes: +AMBIEN 5 MG TABL5 M1 PO; +ASPIRIN EC81 M1 PO; +B12INJ IM; +BACTRIM DS TAB1 EACH PO; +DIFLUCAN200 MG PO; +DOXYCYCLINE 10100 M1 PO; +ENOXAPARIN30 MG/0.1 SUBQ; +GLIMEPIRIDE1 MG PO; +IPRAT-ALBUT 0.5-3 ML INH; +JANUVIA100 MG PO; +KEFLEX250 MG PO; +LIDODERM1 EACH TOP; +LOPERAMIDE 2 MG2 M1 PO; +NITROGLYCERIN SPRAY SUBLING; +NYSTATIN100000 UNI SW&SWALLOW; +OMEPRAZOLE 20 M20 M1 PO; +PEPCID20 MG PO; +PREDNISONE 10 M10 MG PO; +PROVIGIL 200 M200 M1 PO; +SERTRALINE HCL50 MG PO; +XANAX 0.25 MG0.25 MG PO
[2018-10-16 11:11] VITALS: BP 132/78
[2018-10-16 11:26] LABS: ABSOLUTE BASOPHILS 0.1 thou/uL (0.0-0.2); ABSOLUTE EOSINOPHILS 0.1 thou/uL (0.0-0.7); ABSOLUTE LYMPHOCYTES 3.6 thou/uL (0.8-5.3); ABSOLUTE MONOCYTES 0.8 thou/uL (0.0-1.2); ABSOLUTE NEUTROPHILS 8.3 thou/uL (1.6-8.1); BASOPHILS 0.6 %; EOSINOPHILS 1.1 %; HEMATOCRIT 43.6 % (37.0-47.0); HEMOGLOBIN 13.8 gm/dL (12.0-15.0); LYMPHOCYTES 27.8 %; MCH 26.8 pg (26.0-34.0); MCHC 31.7 g/dL (28.0-37.0); MCV 84.5 fL (80.0-100.0); MONOCYTES 6.2 %; MPV 7.4 fl. (7.2-11.1); NUCLEATED RBCS 0 /100WBC; PLATELET COUNT* 463 thou/uL (150-400); POLYS 64.3 %; RBC 5.16 mil/uL (4.20-5.00); RDW-CV 15.6 % (10.5-14.5); WBC 12.9 thou/uL (4.0-11.0)
[2018-10-16] MEDS ORDERED: PRAVACHOL40 MG PO (11:26)
[2018-10-16] MEDS ORDERED: EXCEDRIN CAPLE1 EACH PO (11:26)
[2018-10-16] MEDS ORDERED: MUCINEX DM ER1 EAC1 PO (11:26)
[2018-10-16] MEDS ORDERED: CARDIZEM CD120 MG PO (11:27)
[2018-10-16] MEDS ORDERED: EFFEXOR XR75 MG PO (11:27)
[2018-10-16] MEDS ORDERED: KLOR-CON 1010 MEQ PO (11:30)
[2018-10-16] MEDS ORDERED: POTASSIUM20 PO (11:31)
[2018-10-16] MEDS ORDERED: PREDNISONE 10 M10 MG PO (11:32)
[2018-10-16] MEDS ORDERED: ADVAIR HFA 230M12 GM INH (11:33)
[2018-10-16 11:37] LABS: ANION GAP 14 mmol/L (7-16); BUN 10 mg/dL (7-18); CALCIUM 10.3 mg/dL (8.5-10.1); CHLORIDE 99 mmol/L (98-107); CO2 25 mmol/L (21-32); CREATININE 0.8 mg/dL (0.6-1.3); GLUCOSE 183 mg/dL (70-99); POTASSIUM 3.7 mmol/L (3.5-5.1); SODIUM 138 mmol/L (136-145)
[2018-10-16 11:46] LABS: ALBUMIN 3.6 g/dL (3.4-5.0); ALKALINE PHOSPHATASE 148 U/L (46-116); LIPASE 114 U/L (73-393); SGOT 7 U/L (15-37); SGPT 12 U/L (30-65); TOTAL BILIRUBIN 0.6 mg/dL (<0.1-1.0); TOTAL PROTEIN 8.8 g/dL (6.4-8.2); TROPONIN-I LEVEL <0.06 ng/mL (<0.06)
[2018-10-16 15:15] VITALS: BP 133/83
[2018-10-16 15:21] VITALS: BP 127/72
[2018-10-16 20:30] VITALS: BP 126/59
[2018-10-17 04:28] LABS: ABSOLUTE EOSINOPHILS 0.2 thou/uL (0.0-0.7); ABSOLUTE LYMPHOCYTES 3.2 thou/uL (0.8-5.3); ABSOLUTE MONOCYTES 0.7 thou/uL (0.0-1.2); BASOPHILS 0.6 %; EOSINOPHILS 2.2 %; HEMATOCRIT 27.5 % (37.0-47.0); LYMPHOCYTES 39.2 %; MCH 26.7 pg (26.0-34.0); MCHC 31.3 g/dL (28.0-37.0); MCV 85.3 fL (80.0-100.0); MONOCYTES 9.1 %; MPV 7.8 fl. (7.2-11.1); NUCLEATED RBCS 0 /100WBC; POLYS 48.9 %; RBC 3.22 mil/uL (4.20-5.00); RDW-CV 15.6 % (10.5-14.5); WBC 8.1 thou/uL (4.0-11.0)
[2018-10-17 04:39] LABS: CREATININE 0.5 mg/dL (0.6-1.3); POTASSIUM 3.4 mmol/L (3.5-5.1)
[2018-10-17 04:44] LABS: HEMOGLOBIN 8.6 gm/dL (12.0-15.0); PLATELET COUNT* 278 thou/uL (150-400)
[2018-10-17 04:55] LABS: CALCIUM 8.3 mg/dL (8.5-10.1)
[2018-10-17 08:00] VITALS: BP 147/71
[2018-10-17 16:30] VITALS: BP 116/54
[2018-10-18 04:24] LABS: ABSOLUTE BASOPHILS 0.1 thou/uL (0.0-0.2); ABSOLUTE EOSINOPHILS 0.2 thou/uL (0.0-0.7); ABSOLUTE LYMPHOCYTES 2.5 thou/uL (0.8-5.3); ABSOLUTE MONOCYTES 0.6 thou/uL (0.0-1.2); ABSOLUTE NEUTROPHILS 4.4 thou/uL (1.6-8.1); BASOPHILS 0.7 %; EOSINOPHILS 3.1 %; HEMATOCRIT 26.9 % (37.0-47.0); HEMOGLOBIN 8.4 gm/dL (12.0-15.0); LYMPHOCYTES 31.5 %; MCH 26.4 pg (26.0-34.0); MCHC 31.2 g/dL (28.0-37.0); MCV 84.8 fL (80.0-100.0); MONOCYTES 8.2 %; MPV 7.9 fl. (7.2-11.1); NUCLEATED RBCS 0 /100WBC; PLATELET COUNT* 267 thou/uL (150-400); POLYS 56.5 %; RBC 3.18 mil/uL (4.20-5.00); RDW-CV 15.2 % (10.5-14.5); WBC 7.9 thou/uL (4.0-11.0)
[2018-10-18 04:29] LABS: ALBUMIN 2.3 g/dL (3.4-5.0); CALCIUM 8.7 mg/dL (8.5-10.1); CREATININE 0.5 mg/dL (0.6-1.3); POTASSIUM 3.2 mmol/L (3.5-5.1); TOTAL BILIRUBIN 0.3 mg/dL (<0.1-1.0); TOTAL PROTEIN 5.4 g/dL (6.4-8.2)
[2018-10-18 07:43] VITALS: BP 112/53
[2018-10-18 08:47] VITALS: BP 112/53
[2018-10-18] MEDS ORDERED: JANUVIA100 MG PO (10:46)
--- NOTE | 2018-10-18 14:41 | EKG ---
[place] [address] ELECTROCARDIOGRAM REPORT Name: DORITA TUBBS Room: [address] ADM IN [facility].#: [id number] Admission: 10/16/18 Attend Phys: Casey Mills MD Discharge: Date of : 50 Report #: [id number] THIS REPORT FOR: //name// 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: : 1950 Requested By: Viral Khan Order Number: [id number] MD: Julio Cesar Savage Measurements Intervals [place] Rate: 113 P: 87 VA: 136 QRS: 53 QRSD: 91 T: 5 QT: 345 QTc: 473 Interpretive Statements Sinus tachycardia Borderline repolarization abnormality Baseline wander in lead(s) V5 Consider right atrial enlargement Compared to ECG 01/07/2013 17:08:04 No significant changes Electronically Signed On 10-18-2018 14:41:34 CDT by Julio Cesar Savage [email or web address] <ELECTRONICALLY SIGNED> By: Julio Cesar Savage MD, FAC 10/18/18 1441 1128 1128 Julio Cesar Savage MD, [facility] /EPI
[2018-10-18 16:00] VITALS: BP 118/46
[2018-10-19] VITALS: BP 135/63
[2018-10-19 04:08] LABS: ABSOLUTE EOSINOPHILS 0.2 thou/uL (0.0-0.7); ABSOLUTE LYMPHOCYTES 2.3 thou/uL (0.8-5.3); ABSOLUTE MONOCYTES 0.6 thou/uL (0.0-1.2); ABSOLUTE NEUTROPHILS 4.6 thou/uL (1.6-8.1); BASOPHILS 0.5 %; EOSINOPHILS 3.1 %; HEMATOCRIT 27.4 % (37.0-47.0); HEMOGLOBIN 8.9 gm/dL (12.0-15.0); LYMPHOCYTES 29.7 %; MCH 27.1 pg (26.0-34.0); MCHC 32.5 g/dL (28.0-37.0); MCV 83.3 fL (80.0-100.0); MONOCYTES 7.8 %; MPV 8.3 fl. (7.2-11.1); NUCLEATED RBCS 0 /100WBC; PLATELET COUNT* 290 thou/uL (150-400); POLYS 58.9 %; RBC 3.29 mil/uL (4.20-5.00); RDW-CV 15.5 % (10.5-14.5); WBC 7.7 thou/uL (4.0-11.0)
[2018-10-19 04:32] LABS: CALCIUM 8.7 mg/dL (8.5-10.1); CREATININE 0.4 mg/dL (0.6-1.3)
[2018-10-19 04:36] LABS: POTASSIUM 2.8 mmol/L (3.5-5.1)
[2018-10-19 07:25] VITALS: BP 114/66
[2018-10-19 16:34] VITALS: BP 131/49
--- NOTE | 2018-10-19 17:06 | PATH ---
[address] [address] PATHOLOGY RPT PROCEDURE Name: DORITA TUBBS Room: [address] IN .R.#: [id number] Admission: 10/16/18 Date of : 50 Discharge: Report #: [id number] Path Case #: [id number] [facility] Accession Number: [id number] . 01 Material submitted: . PART A: duodenum bulb - DUODENAL BULB ULCER PART B: stomach - ANTRAL BIOPSY FOR H. PYLORI . 01 Clinical history: . None provided . 02 Diagnosis: A. Duodenal bulb ulcer: - Nonspecific active duodenitis with ulceration, negative for granulomas, viral inclusions and dysplasia. . B. Antral biopsy (for H. pylori): - Mild nonspecific chronic antral gastritis, negative for Helicobacter pylori organisms, viral inclusions, granulomas, and dysplasia. See comment. (BHAVANA:pit 10/19/2018) QTP/10/19/2018 . 02 Comment: In the antral biopsy (B) a minute unattached fragment of fibrinopurulent material, thought likely to be "carryover" from the duodenal bulb ulcer is noted. (BHAVANA:pit 10/19/2018) . Special stain on B: H. pylori immuno . 02 Electronically signed: . Tung Strickland MD, Pathologist NPI- [id number] . 01 Gross description: . A. Received in formalin labeled "Dorita Tubbs, duodenal bulb ulcer," are 2 segments of ashley soft tissue measuring 0.9 x 0.3 x 0.2 cm in aggregate dimensions and ranging from 0.4 to 0.5 cm in maximum dimension. The specimen is submitted entirely in cassette A1. . B. Received in formalin labeled "Dorita Tubbs, antral biopsy for H. pylori," are 2 segments of ashley soft tissue measuring 0.7 x 0.3 x 0.2 cm in aggregate dimensions and ranging from 0.3 to 0.4 cm in maximum dimension. The specimen is submitted entirely in cassette B1. (TSD; 10/18/2018) TOB/TOB . 02 [place] [address] PATHOLOGY RPT PROCEDURE Name: DICK TUBBSBrook Morris Room: [address] IN M.R.#: [id number] Admission: 10/16/18 Date of : 50 Discharge: Report #: [id number] Path Case #: [id number] Pathologist provided ICD-10: K29.80, K26.9, K29.50 . 02 CPT . 550640, 080206, O50155 Specimen Comment: A courtesy copy of this report has been sent to Specimen Comment: [phone], , . Specimen Comment: Report sent to ,DR CAMPO / DR MIMS Performed at: [address] [facility] [address], [place], [place] [id number] MD Mike Franks MD Phone: [phone] Performed at: 02 [facility] [place] [address] [address], [place], [place] [id number] MD Tung Strickland MD Phone: [phone]
[2018-10-19 21:16] LABS: MAGNESIUM 2.1 mg/dL (1.8-2.4); POTASSIUM 3.4 mmol/L (3.5-5.1)
[2018-10-19 22:00] VITALS: BP 135/62
[2018-10-20 07:35] VITALS: BP 128/61
[2018-10-20 10:25] VITALS: BP 128/61
[2018-10-20 10:34] VITALS: BP 128/61
[2018-10-20 11:57] VITALS: BP 128/61
[2018-10-20 13:20] VITALS: BP 128/61
== END 2018-10-20 13:20 | disposition home or self-care (01) | DRG 378 ==
LOC: M.ERS 11:04 → M.TBA-ER 14:12 → M.ORTHSURG 14:12
PROVIDERS: Family Medicine; Internal Medicine Gastroenterology; ADMIT Internal Medicine
PROC: 0DB98ZX Excision of Duodenum, Via Natural or Artificial Opening Endoscopic, Diagnostic (ICD-10-PCS; principal; 2018-10-18)
PROC: 0DB68ZX Excision of Stomach, Via Natural or Artificial Opening Endoscopic, Diagnostic (ICD-10-PCS; 2018-10-18)
PROC: 0DJD8ZZ Inspection of Lower Intestinal Tract, Via Natural or Artificial Opening Endoscopic (ICD-10-PCS; 2018-10-19)
DX: K29.01 Acute gastritis with bleeding (principal); D62 Acute posthemorrhagic anemia; E44.0 Moderate protein-calorie malnutrition; K57.31 Diverticulosis of large intestine without perforation or abscess with bleeding; K26.4 Chronic or unspecified duodenal ulcer with hemorrhage; E11.9 Type 2 diabetes mellitus without complications; J44.9 Chronic obstructive pulmonary disease, unspecified; I25.10 Atherosclerotic heart disease of native coronary artery without angina pectoris; I50.9 Heart failure, unspecified; I11.0 Hypertensive heart disease with heart failure; F17.210 Nicotine dependence, cigarettes, uncomplicated; K44.9 Diaphragmatic hernia without obstruction or gangrene; K80.80 Other cholelithiasis without obstruction; N28.89 Other specified disorders of kidney and ureter; E03.9 Hypothyroidism, unspecified; K64.4 Residual hemorrhoidal skin tags; K80.20 Calculus of gallbladder without cholecystitis without obstruction; Z68.24 Body mass index [BMI] 24.0-24.9, adult; Z90.710 Acquired absence of both cervix and uterus; Z87.81 Personal history of (healed) traumatic fracture; Z88.8 Allergy status to other drugs, medicaments and biological substances; Z88.6 Allergy status to analgesic agent; Z91.02 Food additives allergy status; Z91.040 Latex allergy status; Z88.0 Allergy status to penicillin; Z91.013 Allergy to seafood; Z90.49 Acquired absence of other specified parts of digestive tract

== ENCOUNTER → 2019-02-07 | Outpatient (CLI) | payer MEDICARE, OTHER ==
[~2019-02-07] MED LIST changes: +ADVAIR HFA 230M12 GM INH; +CARDIZEM CD120 MG PO; +DILTIAZEM ER120 MG PO; -DILTIAZEM HCL60 MG PO; +EFFEXOR XR75 MG PO; +EXCEDRIN CAPLE1 EACH PO; +KLOR-CON 1010 MEQ PO; +LEVOXYL112 MCG PO; +MUCINEX DM ER1 EAC1 PO; +PRAVACHOL40 MG PO; +PROAIR HFA8.5 GM INH
[2019-02-07 13:19] LABS: ABSOLUTE BASOPHILS 0.1 thou/uL (0.0-0.2); ABSOLUTE EOSINOPHILS 0.4 thou/uL (0.0-0.7); ABSOLUTE LYMPHOCYTES 3.5 thou/uL (0.8-5.3); ABSOLUTE MONOCYTES 0.9 thou/uL (0.0-1.2); ABSOLUTE NEUTROPHILS 8.5 thou/uL (1.6-8.1); BASOPHILS 0.8 %; EOSINOPHILS 2.9 %; HEMATOCRIT 39.9 % (37.0-47.0); HEMOGLOBIN 12.7 gm/dL (12.0-15.0); LYMPHOCYTES 26.4 %; MCH 25.1 pg (26.0-34.0); MCHC 31.9 g/dL (28.0-37.0); MCV 78.8 fL (80.0-100.0); MONOCYTES 6.4 %; MPV 8.5 fl. (7.2-11.1); NUCLEATED RBCS 0 /100WBC; PLATELET COUNT* 334 thou/uL (150-400); POLYS 63.5 %; RBC 5.06 mil/uL (4.20-5.00); RDW-CV 32.2 % (10.5-14.5); WBC 13.4 thou/uL (4.0-11.0)
[2019-02-07 13:45] LABS: HYPOCHROMASIA 2+
[2019-02-07 13:46] LABS: PLATELET ESTIMATE ADEQUATE
[2019-02-07 13:47] LABS: MICROCYTES 2+
[2019-02-07 13:50] LABS: ANISOCYTOSIS 3+; MACROCYTES Occasional
[2019-02-07 14:25] LABS: ESR (SEDRATE) 5 mm/hr (0-30)
== END ==
LOC: M.LAB 13:01
PROVIDERS: Internal Medicine Gastroenterology
DX: D50.0 Iron deficiency anemia secondary to blood loss (chronic) (principal)

== ENCOUNTER → 2019-02-17 | Day surgery (SDC) | payer MEDICARE, OTHER ==
--- NOTE | ~2019-02-17 | PROC ---
[address] [address] PROCEDURE REPORT Name: DORITA TUBBS Room: [facility]#: [id number] Admission: 02/17/19 Attend Phys: Jose Allen DO Discharge: Date of : 50 Report #: [id number] THIS REPORT FOR: //name// For GI report, please see the Provation report in Perceptive 7 content. By: 0648Medical Records Staff HEIDI /BLUE
[2019-02-17 09:22] LABS: CALCIUM 9.6 mg/dL (8.5-10.1); CREATININE 0.6 mg/dL (0.6-1.3); POTASSIUM 3.9 mmol/L (3.5-5.1)
[2019-02-17 09:27] LABS: ALBUMIN 3.2 g/dL (3.4-5.0); TOTAL BILIRUBIN 0.2 mg/dL (<0.1-1.0)
== END | disposition home or self-care (01) ==
LOC: M.SUR 08:25
PROVIDERS: Internal Medicine Gastroenterology
DX: K31.819 Angiodysplasia of stomach and duodenum without bleeding (principal); K44.9 Diaphragmatic hernia without obstruction or gangrene; I11.0 Hypertensive heart disease with heart failure; I50.9 Heart failure, unspecified; E11.9 Type 2 diabetes mellitus without complications; J44.9 Chronic obstructive pulmonary disease, unspecified; F17.210 Nicotine dependence, cigarettes, uncomplicated; Z98.890 Other specified postprocedural states; Z79.899 Other long term (current) drug therapy; Z87.19 Personal history of other diseases of the digestive system; Z88.0 Allergy status to penicillin; Z91.040 Latex allergy status; Z88.8 Allergy status to other drugs, medicaments and biological substances; Z90.710 Acquired absence of both cervix and uterus; Z90.49 Acquired absence of other specified parts of digestive tract

== ENCOUNTER 2019-04-15 07:39 | Inpatient (IN) | payer MEDICARE, OTHER ==
[~2019-04-15] VITALS: Ht 160 cm; Wt 59.4 kg
[2019-04-15 07:40] VITALS: BP 182/78
[2019-04-15 08:24] LABS: HEMATOCRIT 34.3 % (37.0-47.0); HEMOGLOBIN 10.7 gm/dL (12.0-15.0); MCH 22.3 pg (26.0-34.0); MCHC 31.1 g/dL (28.0-37.0); MCV 71.8 fL (80.0-100.0); MPV 7.1 fl. (7.2-11.1); NUCLEATED RBCS 0 /100WBC; PLATELET COUNT* 379 thou/uL (150-400); RBC 4.77 mil/uL (4.20-5.00); RDW-CV 22.4 % (10.5-14.5)
[2019-04-15 08:33] LABS: APTT 28.7 Seconds (25.0-31.3); PROTIME 10.2 Seconds (9.20-11.50)
[2019-04-15 08:35] LABS: CALCIUM 9.2 mg/dL (8.5-10.1); CREATININE 0.6 mg/dL (0.6-1.3)
[2019-04-15 08:44] LABS: ALBUMIN 3.5 g/dL (3.4-5.0); MAGNESIUM 1.7 mg/dL (1.8-2.4); TOTAL BILIRUBIN 0.3 mg/dL (<0.1-1.0); TOTAL PROTEIN 7.6 g/dL (6.4-8.2)
[2019-04-15 09:22] LABS: ABSOLUTE LYMPHOCYTES 2.1 thou/uL (0.8-5.3); ABSOLUTE MONOCYTES 0.6 thou/uL (0.0-1.2); ABSOLUTE NEUTROPHILS 18.3 thou/uL (1.6-8.1); HYPOCHROMASIA 2+; MICROCYTES 1+; POLYCHROMASIA 2+
[2019-04-15 09:23] LABS: PLATELET ESTIMATE ADEQUATE
[2019-04-15 11:09] LABS: BE -1.6 mmol/L (-2 to +3); PO2 97.5 mmHg (75.0-100.0)
[2019-04-15 11:11] LABS: PCO2 62.3 mmHg (35.0-45.0); pH 7.248 (7.340-7.450)
[2019-04-15 11:39] VITALS: BP 164/84
--- NOTE | 2019-04-15 13:50 | 2DMMODE ---
[place] [address] 2 D/M-MODE ECHOCARDIOGRAM Name: DORITA TUBBS Room: [address] ADM IN .R.#: [id number] Admission: 04/15/19 Attend Phys: Oscar Krishna Discharge: Date of : 50 Date of Service: 04/15/19 1350 Report #: [id number] THIS REPORT FOR: //name// APPROVED REPORT Study performed: 04/15/2019 12:56:17 EXAM: Comprehensive 2D, Doppler, and color-flow Echocardiogram Patient Location: Bedside BSA: 1.62 HR: 124 bpm BP: 164/84 mmHg Other Information Study Quality: Fair Indications Dyspnea 2D Dimensions IVSd: 10.85 (7-11mm) LVOT Diam: 20.73 (18-24mm) LVDd: 40.41 mm PWd: 10.89 (7-11mm) Ascending Ao: 29.05 (22-36mm) LVDs: 26.75 (25-40mm) Aortic Root: 25.12 mm Volumes Left Atrial Volume (Systole) LA ESV Index: 16.00 mL/m2 Aortic Valve AoV Peak Balaji.: 1.71 m/s AO Peak Gr.: 11.71 mmHg LVOT Max P.99 mmHg AO Mean Gr.: 7.12 mmHg LVOT Mean P.10 mmHg LVOT Max V: 1.41 m/s AO V2 VTI: 27.43 cm LVOT Mean V: 0.93 m/s KEVIN (VTI): 2.82 cm2 LVOT V1 VTI: 22.92 cm Mitral Valve E/A Ratio: 0.69 MV Decel. Time: 80.81 ms MV E Max Balaji.: 0.78 m/s MV PHT: 23.43 ms MVA (PHT): 9.39 [place]2 [place] [address] 2 D/M-MODE ECHOCARDIOGRAM Name: DORITA TUBBS Room: [address] IN .R.#: [id number] Admission: 04/15/19 Attend Phys: Oscar Krishna Discharge: Date of : 50 Date of Service: 04/15/19 1350 Report #: [id number] TDI E/Lateral E': 5.20 E/Medial E': 4.33 Medial E' Balaji.: 0.18 m/s Lateral E' Balaji.: 0.15 m/s Pulmonary Valve PV Peak Balaji.: 1.03 m/s PV Peak Gr.: 4.22 mmHg Tricuspid Valve RAP Estimate: 5.00 mmHg TR Peak Gr.: 11.22 mmHg RVSP: 16.22 mmHg PA Pressure: 16.22 mmHg Left Ventricle The left ventricle is normal size. There is normal LV segmental wall motion. There is normal left ventricular wall thickness. Left ventricular systolic function is hyperdynamic. LVEF is >70%. Transmitral Doppler flow pattern suggests impaired LV relaxation. Right Ventricle The right ventricle is normal size. The right ventricular systolic function is normal. Atria The left atrium size is normal. The right atrium size is normal. Aortic Valve The aortic valve is normal in structure. No aortic regurgitation is present. There is no aortic valvular stenosis. Mitral Valve The mitral valve is normal in structure. Trace mitral regurgitation. No evidence of mitral valve stenosis. Tricuspid Valve The tricuspid valve is normal in structure. Trace tricuspid regurgitation. Pulmonic Valve The pulmonary valve is normal in structure. There is no pulmonic valvular regurgitation[place] [address] 2 D/M-MODE ECHOCARDIOGRAM Name: DORITA TUBBS Room: [address]#: [id number] Admission: 04/15/19 Attend Phys: Oscar Krishna Discharge: Date of : 50 Date of Service: 04/15/19 1350 Report #: [id number] The aortic root is normal in size. IVC is normal in size and collapses >50% with inspiration. Pericardium Prominent anterior epicardial fat pad is present. <Conclusion> The left ventricle is normal size. There is normal left ventricular wall thickness. Left ventricular systolic function is hyperdynamic. LVEF is >70%. Transmitral Doppler flow pattern suggests impaired LV relaxation. Trace mitral regurgitation. Trace tricuspid regurgitation. IVC is normal in size and collapses >50% with inspiration. <ELECTRONICALLY SIGNED> By: Julio Cesar Savage MD, FACC 04/15/19 1350 1350 1350 Julio Cesar Savage MD, FACC /INF
--- NOTE | 2019-04-15 15:16 | EKG ---
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 : 1950 Requested By: Viral Khan Order Number: [id number] MD: Julio Cesar Savage Measurements Intervals [place] Rate: 150 P: TX: QRS: 98 QRSD: 120 T: 87 QT: 304 QTc: 481 Interpretive Statements Sinus rhythm Artifact in lead(s) I,II,III,aVL,V2,V3,V4,V5,V6 and baseline wander in lead(s) I,III,aVL,V1 Compared to ECG 10/16/2018 11:28:56 Significant artifact noted consider repeat electrocardiogram Electronically Signed On 04-15-2019 15:15:36 SHANK FAKER by Julio Cesar Savage [email or web address] <ELECTRONICALLY SIGNED> By: Julio Cesar Savage MD, FACC 04/15/19 1515 7 7 Julio Cesar Savage MD, FACC /EPI
--- NOTE | 2019-04-15 15:16 | EKG ---
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[facility] : 1950 Requested By: Viral Khan Order Number: [id number] MD: Julio Cesar Savage Measurements Intervals [place] Rate: 122 P: 76 NM: 144 QRS: 58 QRSD: 90 T: 56 QT: 323 QTc: 460 Interpretive Statements Sinus tachycardia Baseline wander in lead(s) II,III,aVR,aVL,aVF Compared to ECG 10/16/2018 11:28:56 No significant changes Electronically Signed On 04-15-2019 15:15:55 LOMBARDI DEVELOPER by Julio Cesar Savage [email or web address] <ELECTRONICALLY SIGNED> By: Julio Cesar Savage MD, FACC 04/15/19 1515 0846 0846 Julio Cesar Savage MD, FACC /EPI
[2019-04-15 21:47] VITALS: BP 123/58
[2019-04-15 22:00] VITALS: BP 114/53
[2019-04-15 23:00] VITALS: BP 116/51
[2019-04-16] VITALS (23 sets, daily range): BP systolic 103–137; BP diastolic 46–68
--- NOTE | 2019-04-16 07:05 | NUR ---
Pt asleep for much of shift; awakens to verbal stimulation. Oriented, forgetful at times. VSS. On BIPAP except when up to BSC (X3 overnight). On 5L O2 per NC when up to BSC. Reports feeling SOA with activity. Will continue to monitor.
[2019-04-16 11:58] LABS: ABSOLUTE LYMPHOCYTES 0.5 thou/uL (0.8-5.3); ABSOLUTE MONOCYTES 0.5 thou/uL (0.0-1.2); ABSOLUTE NEUTROPHILS 9.2 thou/uL (1.6-8.1); BASOPHILS 0.3 %; HEMATOCRIT 30.6 % (37.0-47.0); HEMOGLOBIN 9.4 gm/dL (12.0-15.0); LYMPHOCYTES 4.6 %; MCH 22.1 pg (26.0-34.0); MCHC 30.7 g/dL (28.0-37.0); MCV 71.8 fL (80.0-100.0); MONOCYTES 4.5 %; MPV 7.9 fl. (7.2-11.1); NUCLEATED RBCS 0 /100WBC; PLATELET COUNT* 357 thou/uL (150-400); POLYS 90.6 %; RBC 4.27 mil/uL (4.20-5.00); RDW-CV 21.1 % (10.5-14.5); WBC 10.2 thou/uL (4.0-11.0)
[2019-04-16 12:04] LABS: BE -1.2 mmol/L (-2 to +3); PCO2 VENOUS 45.1 mmHg (41.0-51.0); PO2 VENOUS 155.7 mmHg (35.0-45.0)
[2019-04-16 12:08] LABS: POTASSIUM 4.8 mmol/L (3.5-5.1)
[2019-04-16 12:53] LABS: CREATININE 0.7 mg/dL (0.6-1.3)
[2019-04-16 12:54] LABS: ALBUMIN 2.8 g/dL (3.4-5.0); CALCIUM 9.8 mg/dL (8.5-10.1); TOTAL BILIRUBIN 0.1 mg/dL (<0.1-1.0); TOTAL PROTEIN 6.8 g/dL (6.4-8.2)
--- NOTE | 2019-04-16 19:47 | NUR ---
PATIENT UNABLE TO COME OFF BIPAP FOR MEALS. USED BEDPAN TO VOID. REMAINS ALERT PPN STILL RUNNING.
[2019-04-17] VITALS (19 sets, daily range): BP systolic 115–152; BP diastolic 45–82
--- NOTE | 2019-04-17 18:02 | NUR ---
PATIENT REMAINS OFF BIPAP TODAY COUGH BECOMING MORE PRODUCTIVE. MORE CALM HAS EPISODES OF DISTRESS RELATED TO THE LOSS OF FAMILY MEMBERS. PROGRESSING
[2019-04-18] VITALS (20 sets, daily range): BP systolic 130–162; BP diastolic 63–92
[2019-04-18 01:06] LABS: HEMATOCRIT 31.7 % (37.0-47.0); HEMOGLOBIN 9.8 gm/dL (12.0-15.0); MCH 22.3 pg (26.0-34.0); MCHC 30.8 g/dL (28.0-37.0); MCV 72.2 fL (80.0-100.0); MPV 7.3 fl. (7.2-11.1); RBC 4.39 mil/uL (4.20-5.00); RDW-CV 21.2 % (10.5-14.5); WBC 7.6 thou/uL (4.0-11.0)
[2019-04-18 01:15] LABS: CALCIUM 9.2 mg/dL (8.5-10.1); CREATININE 0.5 mg/dL (0.6-1.3); POTASSIUM 4.3 mmol/L (3.5-5.1)
--- NOTE | 2019-04-18 04:13 | NUR ---
ASSUMED CARE AT 1910H, ON NC AT 2LPM BUT PT BECAMES MORE TACHYPNIC AND ANXIOUS.BIPAP APPLIED AND WELL TOLERATED.PRN ANXIETY MED GIVEN.INSTRUCTED PT TO DRINK MORE FLUIDS.CONTINUE MONITORING AND TOWARD GOALS.
--- NOTE | 2019-04-18 11:00 | NUR ---
PT.IN BED. STATED SHE DID NOT FEEL LIKE TALKING TO CM. SHE HAD JUST SPOKEN WITH . CM DISCUSSED WITH . HE FEELS PT.WILL NEED SNF. SHE IS VERY DEPRESSED AND ANXIOUS. IS NOT TAKING CARE OF HERSELF AT HOME. NO VISITORS AT BEDSIDE. PT.KNOWN FROM LAST SUMMER ADMISSION. SHE HAS A WALKER AT HOME AND O2 WITH [employer]. CM WILL TRY TO SPEAK WITH HER AGAIN TOMORROW TO DISCUSS SNF FACILITIES. SHE DID GO TO [facility] LAST APR. FOR A SNF STAY ACCORDING TO CHART.
[2019-04-18 11:15] LABS: BE 6.9 mmol/L (-2 to +3); PCO2 VENOUS 69.6 mmHg (41.0-51.0); PO2 VENOUS 46.6 mmHg (35.0-45.0)
--- NOTE | 2019-04-18 20:00 | NUR ---
RECEIVED REPORT AND ASSUMED CARE OF PT, ASSESSMENT COMPLETED. PT LETHARGIC, AWAKENS EASILY AND THEN BACK TO SLEEP. COOPERATIVE. O2 ON AT 4L/NC, BREATHS SHALLOW BUT NOT SOA. TELEMETRY ON SHOWING SR. WILL CONT TO MONITOR AND ASSIST NEEDED.
[2019-04-19] VITALS: BP 116/67
[2019-04-19 04:00] VITALS: BP 125/69
--- NOTE | 2019-04-19 07:27 | NUR ---
SLEPT WELL TONIGHT. ASSISTED TO BSC WITH SBA. PT UNABLE TO TOLERATE BIPAP STATING TOO MUCH PRESSURE. PT DESATING, INCREASED O2 TO 5L/NC. TELEMETRY CONT TO SHOW SR. HS GOALS OF REST AND SAFETY ACHIEVED. HOURLY ROUNDING OBSERVED.
--- NOTE | 2019-04-19 07:50 | NUR ---
PT RESTING IN BED, APPEARS ALERT O X 4, DENIES CHEST PAIN, DENIES SOB AT REST, O2 SATS 96% ON O2 AT 5L PER NC, DENIES PAIN OR DISCOMFORT
[2019-04-19 07:53] VITALS: BP 125/70
[2019-04-19 11:43] VITALS: BP 119/62
--- NOTE | 2019-04-19 11:50 | NUR ---
CM spoke with Pt regarding SNF at mt, Pt in agreement. CM faxed referrals to [facility], [facility] and [facility], Pt's preference is [facility] since it's closest to home.
[2019-04-19 16:48] VITALS: BP 122/60
[2019-04-20] VITALS: BP 120/62
[2019-04-20 03:51] VITALS: BP 99/51
--- NOTE | 2019-04-20 05:15 | NUR ---
PATIENT PROGRESSING TOWARDS GOALS: PATIENT ACHIEVED GOAL TO REST. PATIENT DENIES PAIN AND DISCOMFORT. CALL LIGHT WITHIN REACH
[2019-04-20 07:55] VITALS: BP 127/65
--- NOTE | 2019-04-20 07:57 | NUR ---
PT RESTING IN BED, APPEAS ALERT O X 4, DENIES CHEST PAIN , SOB, PAIN OR DISCOMFORT, O2 SATS 96 ON 3L PER NC , PIV APPEARS PATENT. C/O GENERALIZED WEAKNESS
[2019-04-20] MEDS ORDERED: EFFEXOR XR150 MG PO (11:27)
[2019-04-20] MEDS ORDERED: CLONAZEPAM 0.50.5 M1 PO (11:28)
[2019-04-20] MEDS ORDERED: CEFDINIR300 MG PO (11:29)
[2019-04-20 12:00] VITALS: BP 115/58
[2019-04-20 12:29] VITALS: BP 127/65
[2019-04-20 16:49] VITALS: BP 127/65
== END 2019-04-20 17:00 | disposition home health service (06) | DRG 871 ==
LOC: M.ERS 07:39 → M.TBA-ER 09:39 → M.ICU 09:39 → M.TBA-ER 10:40 → M.ICU 12:14 → M.2W 04-18 19:01
PROVIDERS: Family Medicine; ADMIT Internal Medicine
PROC: 5A09357 Assistance with Respiratory Ventilation, Less than 24 Consecutive Hours, Continuous Positive Airway Pressure (ICD-10-PCS; 2019-04-15)
PROC: 5A09357 Assistance with Respiratory Ventilation, Less than 24 Consecutive Hours, Continuous Positive Airway Pressure (ICD-10-PCS; 2019-04-16)
PROC: 5A09357 Assistance with Respiratory Ventilation, Less than 24 Consecutive Hours, Continuous Positive Airway Pressure (ICD-10-PCS; 2019-04-17)
PROC: 5A09357 Assistance with Respiratory Ventilation, Less than 24 Consecutive Hours, Continuous Positive Airway Pressure (ICD-10-PCS; principal; 2019-04-18)
DX: A41.9 Sepsis, unspecified organism (principal); E43 Unspecified severe protein-calorie malnutrition; J15.6 Pneumonia due to other Gram-negative bacteria; J96.21 Acute and chronic respiratory failure with hypoxia; J96.22 Acute and chronic respiratory failure with hypercapnia; J44.1 Chronic obstructive pulmonary disease with (acute) exacerbation; J44.0 Chronic obstructive pulmonary disease with (acute) lower respiratory infection; J84.9 Interstitial pulmonary disease, unspecified; E87.2 Acidosis; E11.9 Type 2 diabetes mellitus without complications; I11.0 Hypertensive heart disease with heart failure; I50.9 Heart failure, unspecified; E03.9 Hypothyroidism, unspecified; F17.210 Nicotine dependence, cigarettes, uncomplicated; F32.9 Major depressive disorder, single episode, unspecified; F41.9 Anxiety disorder, unspecified; I25.10 Atherosclerotic heart disease of native coronary artery without angina pectoris; Z87.81 Personal history of (healed) traumatic fracture; Z79.899 Other long term (current) drug therapy; Z79.82 Long term (current) use of aspirin; Z90.710 Acquired absence of both cervix and uterus; Z88.6 Allergy status to analgesic agent; Z91.040 Latex allergy status; Z88.0 Allergy status to penicillin; Z91.013 Allergy to seafood; Z91.018 Allergy to other foods; Z79.4 Long term (current) use of insulin; Z90.722 Acquired absence of ovaries, bilateral; Z83.3 Family history of diabetes mellitus; Z82.49 Family history of ischemic heart disease and other diseases of the circulatory system; Z99.81 Dependence on supplemental oxygen; Z68.23 Body mass index [BMI] 23.0-23.9, adult

== ENCOUNTER 2019-06-27 11:59 | Inpatient (IN) | payer MEDICARE, OTHER ==
[~2019-06-27] VITALS: Ht 160 cm; Wt 58.1 kg
[~2019-06-27 11:59] MED LIST changes: +CEFDINIR300 MG PO; +EFFEXOR XR150 MG PO
[2019-06-27 12:04] VITALS: BP 153/82
[2019-06-27 12:49] LABS: HEMATOCRIT 38.2 % (37.0-47.0); HEMOGLOBIN 12.3 gm/dL (12.0-15.0); MCH 26.3 pg (26.0-34.0); MCHC 32.2 g/dL (28.0-37.0); MCV 81.6 fL (80.0-100.0); MPV 7.5 fl. (7.2-11.1); NUCLEATED RBCS 0 /100WBC; PLATELET COUNT* 411 thou/uL (150-400); RBC 4.68 mil/uL (4.20-5.00); RDW-CV 21.3 % (10.5-14.5); WBC 26.8 thou/uL (4.0-11.0)
[2019-06-27 12:59] LABS: APTT 25.4 Seconds (25.0-31.3); PROTIME 9.8 Seconds (9.20-11.50)
[2019-06-27 13:00] LABS: CALCIUM 9.4 mg/dL (8.5-10.1); CREATININE 0.5 mg/dL (0.6-1.3); POTASSIUM 4.3 mmol/L (3.5-5.1)
[2019-06-27 13:10] LABS: ALBUMIN 3.4 g/dL (3.4-5.0); MAGNESIUM 1.8 mg/dL (1.8-2.4); TOTAL BILIRUBIN 0.3 mg/dL (<0.1-1.0); TOTAL PROTEIN 7.4 g/dL (6.4-8.2)
[2019-06-27 13:26] LABS: ABSOLUTE BASOPHILS 0.3 thou/uL (0.0-0.2); ABSOLUTE EOSINOPHILS 0.3 thou/uL (0.0-0.7); ABSOLUTE LYMPHOCYTES 1.1 thou/uL (0.8-5.3); ABSOLUTE NEUTROPHILS 25.2 thou/uL (1.6-8.1); METAMYELOCYTES 1 %; PLATELET ESTIMATE ADEQUATE
[2019-06-27 14:03] LABS: BE -1.7 mmol/L (-2 to +3); pH 7.314 (7.340-7.450)
[2019-06-27 14:05] LABS: PCO2 50.2 mmHg (35.0-45.0)
--- NOTE | 2019-06-27 16:32 | EKG ---
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 : 1950 Requested By: Govind Kern Order Number: [id number] MD: Julio Cesar Savage Measurements Intervals [place] Rate: 120 P: 83 OK: 121 QRS: 69 QRSD: 80 T: 49 QT: 338 QTc: 478 Interpretive Statements Sinus tachycardia Borderline prolonged QT interval Artifact in lead(s) I,II,III,aVR,aVL,aVF,V1 Compared to ECG 04/15/2019 08:46:00 Significant changes not noted Electronically Signed On 06-27-2019 16:30:56 CDT by Julio Cesar Savage [email or web address] <ELECTRONICALLY SIGNED> By: Julio Cesar Savage MD, FACC 06/27/19 1630 120 1202 Julio Cesar Savage MD, FACC /EPI
[2019-06-27 19:05] VITALS: BP 118/67
[2019-06-27 19:10] VITALS: BP 116/72
[2019-06-27] MEDS ORDERED: EFFEXOR XR75 MG PO (19:12)
[2019-06-28] VITALS: BP 136/70
[2019-06-28 04:19] VITALS: BP 131/65
[2019-06-28 04:38] LABS: ABSOLUTE LYMPHOCYTES 0.9 thou/uL (0.8-5.3); ABSOLUTE MONOCYTES 0.1 thou/uL (0.0-1.2); ABSOLUTE NEUTROPHILS 8.9 thou/uL (1.6-8.1); BASOPHILS 0.2 %; HEMATOCRIT 37.9 % (37.0-47.0); HEMOGLOBIN 12.3 gm/dL (12.0-15.0); LYMPHOCYTES 9.4 %; MCH 26.7 pg (26.0-34.0); MCHC 32.5 g/dL (28.0-37.0); MCV 81.9 fL (80.0-100.0); MONOCYTES 1.4 %; MPV 7.2 fl. (7.2-11.1); NUCLEATED RBCS 0 /100WBC; PLATELET COUNT* 429 thou/uL (150-400); RBC 4.63 mil/uL (4.20-5.00); RDW-CV 21.6 % (10.5-14.5)
[2019-06-28 04:45] LABS: CALCIUM 9.8 mg/dL (8.5-10.1); CREATININE 0.6 mg/dL (0.6-1.3); POTASSIUM 4.9 mmol/L (3.5-5.1)
[2019-06-28 06:00] LABS: INFLUENZA A ANTIGEN Negative (Negative); INFLUENZA B ANTIGEN Negative (Negative)
[2019-06-28 08:00] VITALS: BP 132/73
[2019-06-28 12:18] VITALS: BP 141/76
[2019-06-28 16:11] VITALS: BP 133/77
[2019-06-28 19:25] VITALS: BP 148/80
[2019-06-29 00:30] VITALS: BP 112/53
[2019-06-29 04:04] VITALS: BP 134/73
[2019-06-29 04:15] LABS: ABSOLUTE MONOCYTES 0.4 thou/uL (0.0-1.2); ABSOLUTE NEUTROPHILS 14.2 thou/uL (1.6-8.1); BASOPHILS 0.2 %; HEMATOCRIT 36.5 % (37.0-47.0); HEMOGLOBIN 11.7 gm/dL (12.0-15.0); LYMPHOCYTES 6.1 %; MCH 26.2 pg (26.0-34.0); MCV 81.9 fL (80.0-100.0); MONOCYTES 2.5 %; MPV 7.3 fl. (7.2-11.1); NUCLEATED RBCS 0 /100WBC; PLATELET COUNT* 408 thou/uL (150-400); POLYS 91.2 %; RBC 4.46 mil/uL (4.20-5.00); RDW-CV 21.1 % (10.5-14.5); WBC 15.6 thou/uL (4.0-11.0)
[2019-06-29 04:42] LABS: CALCIUM 9.6 mg/dL (8.5-10.1); CREATININE 0.5 mg/dL (0.6-1.3); POTASSIUM 4.3 mmol/L (3.5-5.1); TOTAL BILIRUBIN 0.2 mg/dL (<0.1-1.0); TOTAL PROTEIN 6.8 g/dL (6.4-8.2)
[2019-06-29 12:08] VITALS: BP 125/71
[2019-06-29 16:17] VITALS: BP 143/69
--- NOTE | 2019-06-29 18:24 | CON ---
[address] [address] CONSULTATION Name: ARLEYDORITA T Room: [address] IN .R.#: [id number] Admission: 06/27/19 Attend Phys: Casey Mills MD Discharge: Date of : 50 Report #: [id number] THIS REPORT FOR: //name// cc: Musa Mancini K. Steven DO ~ THIS REPORT FOR: //name// CC: Casey Mancini DATE OF SERVICE: 06/28/2019 REASON FOR CONSULTATION: I was asked to see this 69-year-old lady for kxioh-tx-[id number] respiratory failure, acute exacerbation of COPD. HISTORY OF PRESENT ILLNESS: She has a history of 16-xgen-rkdl smoking, continues to smoke a few cigarettes per day. She is on oxygen 2 liters per minute via nasal cannula. She has had increased shortness of breath and cough with yellow sputum production for the past few days. She had to increase her oxygen to 4-1/2 liters. She was brought to the Emergency Room via [facility]. She has had wheezing. She denies body ache, gastroesophageal reflux symptoms or diarrhea. PAST MEDICAL HISTORY: COPD, CHF, coronary artery disease, hypertension, diabetes mellitus, hysterectomy. ALLERGIES: BLOOD THINNER, PRESERVATIVE IN EYEDROPS, PENICILLIN, LATEX, CODEINE, STRAWBERRY, SHELLFISH, WARFARIN. MEDICATIONS: Currently, she is on Solu-Medrol 62.5 mg every 8 hours, DuoNeb q.i.d., Levaquin, albuterol p.r.n., Cardizem, Lovenox 40 mg subcutaneous daily, losartan, Protonix. SOCIAL HISTORY: History of 80-lwne-qodj smoking, continues to smoke. FAMILY HISTORY: Hypertension. REVIEW OF SYSTEMS: As mentioned as above, other systems are otherwise negative. PHYSICAL EXAMINATION: GENERAL: This is an elderly lady, on BiPAP. VITAL SIGNS: Her O2 saturation on 35% FiO2 is 95%, respiratory rate 20, heart rate 98, blood pressure 136/70, temperature 36.2. HEENT: Normocephalic, atraumatic. Pupils are equal, round, reactive to light. She has BiPAP mask on. NECK: There is no lymphadenopathy [place] [address] CONSULTATION Name: DORITA TUBBS Room: [address]#: [id number] Admission: 06/27/19 Attend Phys: Casey Mills MD Discharge: Date of : 50 Report #: [id number] CARDIOVASCULAR: Regular rate and rhythm. PMI is nondisplaced. CHEST: Inspection is normal. LUNGS: There are diminished breath sounds. Percussion is within normal limit. ABDOMEN: Soft. Bowel sounds are good. There is no mass. EXTREMITIES: There is no edema. LYMPHATICS: There is no lymphadenopathy. NEUROLOGIC: Alert. LABORATORY DATA: I reviewed the following lab data: Chest x-ray shows cardiomegaly, no infiltrate. WBC 26.8, hemoglobin 12.3, platelets 411. Influenza A and B, nasal is not done. Sodium 136, potassium 4.3, chloride 102, CO2 of 27, glucose 224, BUN 14, creatinine 0.5. Lactic acid 1.4. Troponin 0.11. BNP 72. ABG, pH 7.31, pCO2 of 50, pO2 of 77 on BiPAP 16/6, FiO2 of 50%. IMPRESSION: 1. Pbqju-mb-ltmydwy respiratory failure secondary to acute exacerbation of chronic obstructive pulmonary disease, acute bronchitis versus others. 2. Acute exacerbation of chronic obstructive pulmonary disease. 3. Acute bronchitis. 4. Leukocytosis. 5. Elevated troponin, ? demand ischemia. 6. Smoker. 7. Hypertension. 8. Diabetes mellitus. 9. Coronary artery disease with history of congestive heart failure. PLAN AND RECOMMENDATIONS: 1. Titrate FiO2 to keep O2 saturation 90%. 2. Continue bronchodilator. 3. Add inhaled corticosteroid. 4. Continue Solu-Medrol. We will taper as her respiratory status improves. 5. Continue antibiotic. 6. Follow up WBC. 7. Nasal swab for influenza A and B. 8. Continue BiPAP. I personally changed the setting to 12/6, rate of 10, FiO2 of 30%. We will use BiPAP p.r.n. during day, continuously at night. 9. I had a long discussion with her regarding the smoking cessation. I have advised her to stop smoking forever. 10. We will check a troponin every 8 hours. 11. The findings and recommendations were discussed with the [place] [address] CONSULTATION Name: DICKLamarDORITA Room: [address] [place] ..#: [id number] Admission: 06/27/19 Attend Phys: Casey Mills MD Discharge: Date of : 50 Report #: [id number] Thank you very much for allowing me to participate in care of this very nice lady. <ELECTRONICALLY SIGNED> By: Max Torre MD 06/29/19 [id number] [id number] Torre MD /nt
[2019-06-29 19:25] VITALS: BP 152/65
[2019-06-29 23:50] VITALS: BP 150/71
[2019-06-30 04:14] VITALS: BP 135/72
[2019-06-30 11:54] VITALS: BP 133/77
[2019-06-30 19:50] VITALS: BP 152/98
[2019-07-01] VITALS: BP 164/82
[2019-07-01 03:55] VITALS: BP 145/79
[2019-07-01 08:36] VITALS: BP 164/73
[2019-07-01 11:44] LABS: HEMATOCRIT 39.1 % (37.0-47.0); HEMOGLOBIN 12.6 gm/dL (12.0-15.0); MCH 26.4 pg (26.0-34.0); MCHC 32.3 g/dL (28.0-37.0); MCV 81.6 fL (80.0-100.0); MPV 8.2 fl. (7.2-11.1); NUCLEATED RBCS 0 /100WBC; PLATELET COUNT* 371 thou/uL (150-400); RBC 4.79 mil/uL (4.20-5.00); RDW-CV 20.3 % (10.5-14.5); WBC 11.3 thou/uL (4.0-11.0)
[2019-07-01 11:51] LABS: CALCIUM 9.3 mg/dL (8.5-10.1); CREATININE 0.5 mg/dL (0.6-1.3); POTASSIUM 4.1 mmol/L (3.5-5.1)
[2019-07-01 12:05] LABS: ABSOLUTE BASOPHILS 0.1 thou/uL (0.0-0.2); ABSOLUTE EOSINOPHILS 0.5 thou/uL (0.0-0.7); ABSOLUTE LYMPHOCYTES 0.5 thou/uL (0.8-5.3); ABSOLUTE MONOCYTES 0.7 thou/uL (0.0-1.2); ABSOLUTE NEUTROPHILS 9.6 thou/uL (1.6-8.1); PLATELET ESTIMATE ADEQUATE
[2019-07-01 12:06] LABS: ANISOCYTOSIS 1+; MICROCYTES 1+
[2019-07-01] MEDS ORDERED: PREDNISONE 10 M10 MG PO (12:12)
[2019-07-01] MEDS ORDERED: LEVAQUIN 500 M500 M3 PO (12:13)
[2019-07-01 12:39] VITALS: BP 164/73
[2019-07-01 12:45] VITALS: BP 164/73
[2019-07-01 14:00] VITALS: BP 152/80
== END 2019-07-01 15:47 | disposition home health service (06) | DRG 871 ==
LOC: M.ERS 11:59 → M.TBA-ER 13:34 → M.2W 13:45 → M.TBA-ER 13:45 → M.2W 18:40
PROVIDERS: Emergency Medicine Emergency Medical Services; ADMIT Internal Medicine
PROC: 5A09357 Assistance with Respiratory Ventilation, Less than 24 Consecutive Hours, Continuous Positive Airway Pressure (ICD-10-PCS; principal; 2019-06-27)
PROC: 5A09357 Assistance with Respiratory Ventilation, Less than 24 Consecutive Hours, Continuous Positive Airway Pressure (ICD-10-PCS; 2019-06-28)
DX: A41.9 Sepsis, unspecified organism (principal); G93.41 Metabolic encephalopathy; J96.22 Acute and chronic respiratory failure with hypercapnia; J96.21 Acute and chronic respiratory failure with hypoxia; I21.A1 Myocardial infarction type 2; J44.1 Chronic obstructive pulmonary disease with (acute) exacerbation; I50.32 Chronic diastolic (congestive) heart failure; J44.0 Chronic obstructive pulmonary disease with (acute) lower respiratory infection; E11.9 Type 2 diabetes mellitus without complications; F17.210 Nicotine dependence, cigarettes, uncomplicated; F41.9 Anxiety disorder, unspecified; F32.9 Major depressive disorder, single episode, unspecified; E03.9 Hypothyroidism, unspecified; I11.0 Hypertensive heart disease with heart failure; J40 Bronchitis, not specified as acute or chronic; I25.10 Atherosclerotic heart disease of native coronary artery without angina pectoris; Z79.82 Long term (current) use of aspirin; Z79.899 Other long term (current) drug therapy; Z91.040 Latex allergy status; Z88.5 Allergy status to narcotic agent; Z88.0 Allergy status to penicillin; Z91.013 Allergy to seafood; Z88.8 Allergy status to other drugs, medicaments and biological substances; Z91.018 Allergy to other foods; Z91.048 Other nonmedicinal substance allergy status; Z82.49 Family history of ischemic heart disease and other diseases of the circulatory system; Z99.81 Dependence on supplemental oxygen; Z90.710 Acquired absence of both cervix and uterus; Z90.49 Acquired absence of other specified parts of digestive tract; Z87.01 Personal history of pneumonia (recurrent); Z85.79 Personal history of other malignant neoplasms of lymphoid, hematopoietic and related tissues; Z86.018 Personal history of other benign neoplasm